=== PATIENT | female | born 1970 | race Caucasian/White ===

== ENCOUNTER 2021-09-13 09:40 | Emergency (ER) | payer MEDICAID ==
[~2021-09-13] VITALS: Ht 180.3 cm; Wt 94.5 kg
[2021-09-13 09:52] VITALS: BP 147/87
[2021-09-13] MEDS ORDERED: HYDR-3972 PO (10:05)
== END 2021-09-13 11:37 | disposition home or self-care (01) ==
LOC: ER 09:41
DX: M25.512 Pain in left shoulder (principal); Z88.0 Allergy status to penicillin; Z88.8 Allergy status to other drugs, medicaments and biological substances; Z91.030 Bee allergy status; Z79.899 Other long term (current) drug therapy
CPT/HCPCS: 73030; 99283

== ENCOUNTER 2024-02-02 08:35 | Emergency (ER) | payer MEDICAID ==
[~2024-02-02] VITALS: Ht 180.3 cm; Wt 74.3 kg
[2024-02-02 08:36] VITALS: BP 140/90; PULSE 75; TEMP 98.8; O2SAT 100
[2024-02-02] MEDS: HYDROcodone/acetaminophen 5mg/325mg tablet PO ONE (09:24)
[2024-02-02 09:31] VITALS: RESP 18
[2024-02-02] MEDS ORDERED: CLIN300C63 PO (09:31)
[2024-02-02] MEDS: ketorolac tromethamine 15mg/ml inj. IM ONE (09:31)
[2024-02-02] MEDS ORDERED: HYDR-3965 PO (09:31)
== END 2024-02-02 09:47 | disposition home or self-care (01) ==
LOC: ER 08:35
DX: K04.7 Periapical abscess without sinus (principal); Z88.0 Allergy status to penicillin; Z91.041 Radiographic dye allergy status
CPT/HCPCS: 96372; 99283; J1885

== ENCOUNTER 2024-09-10 19:42 | Inpatient (IN) | payer MEDICAID ==
[~2024-09-10] VITALS: Ht 180.3 cm; Wt 77.3 kg
[2024-09-10] MEDS: tamsulosin 0.4mg capsule PO STA (21:57)
[2024-09-10] MEDS: meperidine/PF 50mg/ml syringe IV ONE (21:57)
[2024-09-10] MEDS: ketorolac trometh 15mg/ml vial 15 MG/ML ML IV ONE (21:58)
[2024-09-10] MEDS: normal saline 1000ML IV soln IVB ONE (22:00)
[2024-09-10 22:11] LABS: BILIRUBIN,URINE NEGATIVE (Neg); CLARITY,URINE CLEAR (Clear); COLOR,URINE YELLOW (Yellow); GLUCOSE, URINE NEGATIVE (Neg); KETONES,URINE NEGATIVE (Neg); LEUKOCYTE ESTERASE ,URINE NEGATIVE (Neg); NITRITES, URINE NEGATIVE (Neg); OCCULT BLOOD,URINE NEGATIVE (Neg); PROTEIN,URINE NEGATIVE (Neg); UROBILINOGEN,URINE 0.2 E.U/dL (0.2-1.0)
[2024-09-10 22:15] LABS: UA COLLECTION TYPE CLN CATCH MIDSTREAM
[2024-09-10 22:35] LABS: BASOPHILS % (AUTO) 0.6 % (0-1); EOSINOPHILS # (AUTO) 0.1 X10'3 (0-0.9); EOSINOPHILS % (AUTO) 2.7 % (0-6); HEMOGLOBIN 13.1 g/dl (12.0-16.0); LYMPHOCYTES # (AUTO) 1.7 X10'3 (1.1-4.8); LYMPHOCYTES % (AUTO) 39.5 % (21-51); MEAN CORPUSCULAR HEMOGLOBIN 37.3 PG (27.0-31.0); MEAN CORPUSCULAR HGB CONC 34.5 g/dL (33.0-36.5); MEAN CORPUSCULAR VOLUME 108.3 FL (78-98); MEAN PLATELET VOLUME 7.2 FL (7.4-10.4); MONOCYTES # (AUTO) 0.4 X10'3 (0-0.9); MONOCYTES % (AUTO) 10.3 % (2-12); NEUTROPHILS % (AUTO) 46.9 % (42-75); PLATELET COUNT 150 X10'3 (140-440); RED BLOOD COUNT 3.51 X10'6 (4.20-5.60); WHITE BLOOD COUNT 4.3 X10'3 (4.5-11.0)
[2024-09-10 22:48] LABS: ALANINE AMINOTRANSFERASE 75 U/L (12-78); ALBUMIN 3.4 G/DL (3.4-5.0); ALBUMIN/GLOBULIN RATIO 0.9 (1.1-1.5); ALKALINE PHOSPHATASE 113 IU/L (46-116); ANION GAP 10 (8-16); ASPARTATE AMINO TRANSFERASE 111 U/L (10-37); BILIRUBIN,TOTAL 0.9 MG/DL (0.1-1.0); BLOOD UREA NITROGEN 4 MG/DL (7-18); BUN/CREATININE RATIO 6.3 (10.0-20.0); CALCIUM 8.4 MG/DL (8.5-10.1); CHLORIDE 106 MMOL/L (99-107); CREATININE 0.63 MG/DL (0.40-0.90); GLUCOSE 90 MG/DL (70-104); LIPASE 47 U/L (16-77); MAGNESIUM 1.9 MG/DL (1.5-2.4); SODIUM 141 MMOL/L (135-145); TOTAL CARBON DIOXIDE 25.4 MMOL/L (24-32); TOTAL PROTEIN 7.3 G/DL (6.4-8.2); eCRCL 115 ML/MIN; eGFR > 90 ML/MIN
[2024-09-10 22:53] LABS: BILIRUBIN,DIRECT 0.2 MG/DL (0-0.3); POTASSIUM 3.1 MMOL/L (3.5-5.1)
[2024-09-11] MEDS ORDERED: potassium Cl 20 mEq SR tablet PO PRN ×2 (00:15)
[2024-09-11] MEDS ORDERED: magnesium sulf-water 4G/100mL 100 ML IV PRN (00:15)
[2024-09-11] MEDS ORDERED: magnesium Cl slow-release 64mg tablet PO PRN (00:15)
[2024-09-11] MEDS: ringers solution, lacted 1,000 ML IV SCH (00:15)
[2024-09-11] MEDS ORDERED: magnesium sulf-water 2g/50mL 50 ML IV PRN (00:15)
[2024-09-11] MEDS ORDERED: metoclopramide 5 mg/ml inj IV PRN (00:15)
[2024-09-11] MEDS ORDERED: acetaminophen 325mg tablet PO PRN (00:15)
[2024-09-11] MEDS: LORazepam 2 mg/ml vial IV ONE (01:15)
[2024-09-11] MEDS: LidoCAINE 2% Topical Jelly 11mL syringe (UROJET) TOP STA (02:14)
[2024-09-11] MEDS: heparin, porcine 5000 units/ml vial SQ SCH (07:30)
[2024-09-11] MEDS: morphine 2 MG/ML inj. syringe IV PRN (07:39)
[2024-09-11] MEDS: K and/or MAG REPLACEMENT MC SCH (08:00)
[2024-09-11] MEDS: potassium Cl 40MEQ/1/2NS 520ml 520 ML IV PRN (10:33)
[2024-09-11] MEDS: HYDROmorphone inj. 0.5 MG/0.5 ML DISP.SYRIN IV PRN (13:33)
[2024-09-11] MEDS ORDERED: ESTR1TAB28 PO (14:54)
[2024-09-11] MEDS ORDERED: LOSA50TA64 PO (14:54)
[2024-09-11] MEDS ORDERED: BUPR-561 PO (14:54)
[2024-09-11] MEDS ORDERED: ROSU10TA72 PO (14:54)
[2024-09-11] MEDS ORDERED: BUSP10TA3 PO (14:54)
[2024-09-11] MEDS ORDERED: PARO20TA6 PO (14:54)
[2024-09-11] MEDS ORDERED: FAMO20TA8 PO (14:54)
[2024-09-11] MEDS ORDERED: NIFE-33 PO (14:54)
[2024-09-11] MEDS ORDERED: UNABLE TO OBTAIN (15:34)
[2024-09-11] MEDS: busPIRone 5mg tablet PO SCH (20:21)
[2024-09-11] MEDS: famotidine 20mg tablet PO SCH (20:21)
[2024-09-11] MEDS: atorvastatin 20mg tablet PO SCH (20:21)
[2024-09-11] MEDS: diatr meglu/diatrizoate 30ml oral sol.-(3 dose) bottle PO SCH (20:54)
[2024-09-11] MEDS: HYDROmorphone 1 mg/ml syringe IV PRN (22:06)
[2024-09-11] MEDS: ondansetron/PF 4mg/2ml inj IV PRN (22:09)
[2024-09-12 03:24] LABS: HEMOGLOBIN 11.6 g/dl (12.0-16.0); MONOCYTES # (AUTO) 0.3 X10'3 (0-0.9); NEUTROPHILS # (AUTO) 2.4 X10'3 (1.8-7.7)
[2024-09-12 03:27] LABS: BASOPHILS % (AUTO) 0.3 % (0-1); EOSINOPHILS # (AUTO) 0.1 X10'3 (0-0.9); EOSINOPHILS % (AUTO) 3.1 % (0-6); HEMATOCRIT 34.7 % (35.0-45.0); LYMPHOCYTES % (AUTO) 26.3 % (21-51); MEAN CORPUSCULAR HEMOGLOBIN 35.3 PG (27.0-31.0); MEAN CORPUSCULAR HGB CONC 33.4 g/dL (33.0-36.5); MEAN CORPUSCULAR VOLUME 105.6 FL (78-98); MONOCYTES % (AUTO) 8.4 % (2-12); NEUTROPHILS % (AUTO) 61.9 % (42-75); PLATELET COUNT 105 X10'3 (140-440); RED BLOOD COUNT 3.28 X10'6 (4.20-5.60); RED CELL DISTRIBUTION WIDTH 14.5 % (11.5-14.5)
[2024-09-12 03:49] LABS: ALANINE AMINOTRANSFERASE 57 U/L (12-78); ALBUMIN 2.7 G/DL (3.4-5.0); ALBUMIN/GLOBULIN RATIO 0.9 (1.1-1.5); ALKALINE PHOSPHATASE 106 IU/L (46-116); ANION GAP 6 (8-16); ASPARTATE AMINO TRANSFERASE 88 U/L (10-37); BILIRUBIN,TOTAL 3.2 MG/DL (0.1-1.0); BLOOD UREA NITROGEN 7 MG/DL (7-18); BUN/CREATININE RATIO 11.7 (10.0-20.0); CALCIUM 8.5 MG/DL (8.5-10.1); CHLORIDE 107 MMOL/L (99-107); GLUCOSE 89 MG/DL (70-104); POTASSIUM 3.9 MMOL/L (3.5-5.1); SODIUM 139 MMOL/L (135-145); TOTAL CARBON DIOXIDE 25.6 MMOL/L (24-32); TOTAL PROTEIN 5.6 G/DL (6.4-8.2); eCRCL 121 ML/MIN; eGFR > 90 ML/MIN
[2024-09-12 04:01] LABS: ANISOCYTOSIS 1+; PLATELET ESTIMATE DECREASED
[2024-09-12 04:40] LABS: TOTAL CELLS COUNTED 100
[2024-09-12 08:00] VITALS: BP 139/68; PULSE 81; RESP 18; TEMP 98.6; O2SAT 98
[2024-09-12] MEDS: PARoxetine 20mg tablet PO SCH (08:00)
[2024-09-12] MEDS: NIFEdipine XL 30mg tablet PO SCH (08:38)
[2024-09-12] MEDS: losartan 50mg tablet PO SCH (08:38)
[2024-09-12] MEDS: BUPROPION HCL 150MG XL 24 HR 150 MG TAB PO SCH (08:38)
[2024-09-12] MEDS: methylPREDNISolone sod succ/PF 40mg inj. IV SCH (11:38)
[2024-09-12] MEDS: famotidine 20mg tablet PO ONE (11:38)
[2024-09-12 15:00] VITALS: BP 120/64; PULSE 77; RESP 18; TEMP 98.1; O2SAT 96
[2024-09-12] MEDS: diphenhydrAMINE 25 MG/10 ML UD oral solution PO PRN (16:24)
[2024-09-12 18:00] VITALS: BP 112/55; PULSE 91; RESP 15; TEMP 98.8; O2SAT 99
[2024-09-12 20:00] VITALS: RESP 15; O2SAT 99
[2024-09-12] MEDS: diatr meglu/diatrizoate 30ml oral sol.-(3 dose) bottle PO SCH (21:00)
[2024-09-12 22:00] VITALS: BP 87/52; PULSE 91; RESP 15; TEMP 98.2; O2SAT 99
[2024-09-13 06:00] VITALS: BP 96/57; PULSE 79; RESP 16; TEMP 97.6; O2SAT 96
[2024-09-13 06:11] LABS: ALANINE AMINOTRANSFERASE 49 U/L (12-78); ALBUMIN 2.5 G/DL (3.4-5.0); ALBUMIN/GLOBULIN RATIO 0.8 (1.1-1.5); ALKALINE PHOSPHATASE 98 IU/L (46-116); ANION GAP 7 (8-16); ASPARTATE AMINO TRANSFERASE 61 U/L (10-37); BILIRUBIN,TOTAL 1.8 MG/DL (0.1-1.0); BLOOD UREA NITROGEN 12 MG/DL (7-18); BUN/CREATININE RATIO 17.6 (10.0-20.0); CALCIUM 8.2 MG/DL (8.5-10.1); CHLORIDE 103 MMOL/L (99-107); CREATININE 0.68 MG/DL (0.40-0.90); GLUCOSE 166 MG/DL (70-104); POTASSIUM 4.1 MMOL/L (3.5-5.1); SODIUM 134 MMOL/L (135-145); TOTAL CARBON DIOXIDE 24.3 MMOL/L (24-32); TOTAL PROTEIN 5.6 G/DL (6.4-8.2); eCRCL 107 ML/MIN; eGFR > 90 ML/MIN
[2024-09-13 06:47] LABS: BASOPHILS % (AUTO) 0.1 % (0-1); EOSINOPHILS % (AUTO) 0 % (0-6); LYMPHOCYTES # (AUTO) 0.3 X10'3 (1.1-4.8); LYMPHOCYTES % (AUTO) 12.7 % (21-51); MEAN PLATELET VOLUME 7.1 FL (7.4-10.4); MONOCYTES # (AUTO) 0.1 X10'3 (0-0.9); MONOCYTES % (AUTO) 4.2 % (2-12); NEUTROPHILS # (AUTO) 2.2 X10'3 (1.8-7.7); PLATELET COUNT 92 X10'3 (140-440); WHITE BLOOD COUNT 2.7 X10'3 (4.5-11.0)
[2024-09-13 09:20] LABS: HEMATOCRIT 31.7 % (35.0-45.0); HEMOGLOBIN 10.8 g/dl (12.0-16.0); MEAN CORPUSCULAR HEMOGLOBIN 36.4 PG (27.0-31.0); MEAN CORPUSCULAR HGB CONC 34.1 g/dL (33.0-36.5); MEAN CORPUSCULAR VOLUME 106.7 FL (78-98); RED BLOOD COUNT 2.97 X10'6 (4.20-5.60); RED CELL DISTRIBUTION WIDTH 13.9 % (11.5-14.5)
[2024-09-13 09:46] LABS: PLATELET ESTIMATE DECREASED; ROULEAUX 1+; TOTAL CELLS COUNTED 100
[2024-09-13 09:47] LABS: SMUDGE CELLS FEW
[2024-09-13] MEDS: mag hydrox/Alum hydrox/simeth 30ml oral suspension PO PRN (16:45)
[2024-09-13 18:00] VITALS: BP 104/63; PULSE 74; RESP 14; TEMP 98.7; O2SAT 98
[2024-09-13 19:40] VITALS: RESP 14; O2SAT 98
[2024-09-13 20:00] VITALS: RESP 14; O2SAT 98
[2024-09-13] MEDS: HYDROcodone/acetaminophen 5mg/325mg tablet PO PRN (20:27)
[2024-09-13 22:00] VITALS: BP 104/60; PULSE 75; RESP 16; TEMP 98; O2SAT 98
[2024-09-13 23:47] VITALS: BP 104/63; PULSE 74; RESP 14; TEMP 98.7; O2SAT 98
[2024-09-14 06:00] VITALS: BP 97/59; PULSE 55; RESP 16; TEMP 97.9; O2SAT 95
[2024-09-14 06:22] LABS: ALANINE AMINOTRANSFERASE 58 U/L (12-78); ALBUMIN 2.9 G/DL (3.4-5.0); ALBUMIN/GLOBULIN RATIO 0.9 (1.1-1.5); ALKALINE PHOSPHATASE 96 IU/L (46-116); ANION GAP 1 (8-16); ASPARTATE AMINO TRANSFERASE 64 U/L (10-37); BLOOD UREA NITROGEN 9 MG/DL (7-18); BUN/CREATININE RATIO 13.8 (10.0-20.0); CALCIUM 8.3 MG/DL (8.5-10.1); CHLORIDE 105 MMOL/L (99-107); CREATININE 0.65 MG/DL (0.40-0.90); GLUCOSE 158 MG/DL (70-104); POTASSIUM 4.6 MMOL/L (3.5-5.1); SODIUM 136 MMOL/L (135-145); TOTAL CARBON DIOXIDE 29.7 MMOL/L (24-32); TOTAL PROTEIN 6.1 G/DL (6.4-8.2); eCRCL 112 ML/MIN; eGFR > 90 ML/MIN
[2024-09-14 07:20] LABS: BASOPHILS % (AUTO) 0.1 % (0-1); EOSINOPHILS % (AUTO) 0 % (0-6); HEMATOCRIT 34.8 % (35.0-45.0); HEMOGLOBIN 11.5 g/dl (12.0-16.0); LYMPHOCYTES # (AUTO) 0.4 X10'3 (1.1-4.8); LYMPHOCYTES % (AUTO) 7.5 % (21-51); MEAN CORPUSCULAR HGB CONC 33.2 g/dL (33.0-36.5); MEAN CORPUSCULAR VOLUME 105.3 FL (78-98); MEAN PLATELET VOLUME 7.4 FL (7.4-10.4); MONOCYTES # (AUTO) 0.3 X10'3 (0-0.9); MONOCYTES % (AUTO) 5.4 % (2-12); NEUTROPHILS # (AUTO) 4.6 X10'3 (1.8-7.7); PLATELET COUNT 114 X10'3 (140-440); RED CELL DISTRIBUTION WIDTH 14.3 % (11.5-14.5); WHITE BLOOD COUNT 5.3 X10'3 (4.5-11.0)
[2024-09-14 08:00] VITALS: RESP 16; O2SAT 95
[2024-09-14 10:00] VITALS: BP 121/81; PULSE 66; RESP 14; TEMP 97.4; O2SAT 98
[2024-09-14] MEDS ORDERED: oxyCODONE/APAP 5-325mg tablet PO PRN (11:35)
[2024-09-14] MEDS: oxyCODONE/APAP 10/325mg tablet ONE (11:50)
[2024-09-14] MEDS: oxyCODONE/APAP 10/325mg tablet PO PRN (15:45)
[2024-09-14 18:00] VITALS: BP 124/73; PULSE 63; RESP 16; TEMP 97.4; O2SAT 96
[2024-09-14] MEDS: barium sulfate 450ml oral suspension PO ONE (20:58)
[2024-09-14 22:00] VITALS: BP 128/74; PULSE 57; RESP 16; TEMP 97.9; O2SAT 95
[2024-09-15 06:23] LABS: ALANINE AMINOTRANSFERASE 68 U/L (12-78); ALBUMIN 3.2 G/DL (3.4-5.0); ALBUMIN/GLOBULIN RATIO 0.9 (1.1-1.5); ALKALINE PHOSPHATASE 101 IU/L (46-116); ANION GAP 5 (8-16); ASPARTATE AMINO TRANSFERASE 60 U/L (10-37); BILIRUBIN,TOTAL 0.8 MG/DL (0.1-1.0); BLOOD UREA NITROGEN 7 MG/DL (7-18); BUN/CREATININE RATIO 9.9 (10.0-20.0); CALCIUM 8.7 MG/DL (8.5-10.1); CHLORIDE 104 MMOL/L (99-107); CREATININE 0.71 MG/DL (0.40-0.90); GLUCOSE 135 MG/DL (70-104); POTASSIUM 4.3 MMOL/L (3.5-5.1); SODIUM 138 MMOL/L (135-145); TOTAL CARBON DIOXIDE 29.3 MMOL/L (24-32); TOTAL PROTEIN 6.7 G/DL (6.4-8.2); eCRCL 102 ML/MIN; eGFR 86 ML/MIN
[2024-09-15 06:40] LABS: BASOPHILS % (AUTO) 0.2 % (0-1); EOSINOPHILS % (AUTO) 0 % (0-6); LYMPHOCYTES # (AUTO) 0.5 X10'3 (1.1-4.8); LYMPHOCYTES % (AUTO) 12.2 % (21-51); MEAN CORPUSCULAR HEMOGLOBIN 35.1 PG (27.0-31.0); MEAN CORPUSCULAR HGB CONC 33.3 g/dL (33.0-36.5); MEAN CORPUSCULAR VOLUME 105.6 FL (78-98); MEAN PLATELET VOLUME 7.3 FL (7.4-10.4); MONOCYTES # (AUTO) 0.2 X10'3 (0-0.9); MONOCYTES % (AUTO) 5.7 % (2-12); NEUTROPHILS # (AUTO) 3.1 X10'3 (1.8-7.7); NEUTROPHILS % (AUTO) 81.9 % (42-75); PLATELET COUNT 114 X10'3 (140-440); RED BLOOD COUNT 3.41 X10'6 (4.20-5.60); RED CELL DISTRIBUTION WIDTH 14.3 % (11.5-14.5); WHITE BLOOD COUNT 3.8 X10'3 (4.5-11.0)
[2024-09-15 07:00] VITALS: BP 132/67; PULSE 68; RESP 16; TEMP 98; O2SAT 97
[2024-09-15] MEDS: barium sulfate 450ml oral suspension PO ONE ×2 (07:24→10:33)
[2024-09-15 08:00] VITALS: RESP 18; O2SAT 96
[2024-09-15 10:00] VITALS: BP 152/78; PULSE 60; RESP 16; TEMP 98; O2SAT 98
[2024-09-15 18:00] VITALS: BP 136/76; PULSE 70; RESP 18; TEMP 97.9; O2SAT 99
[2024-09-15 20:00] VITALS: RESP 18; O2SAT 96
[2024-09-15] MEDS: docusate sod 100mg capsule PO SCH (20:08)
[2024-09-15 22:00] VITALS: BP 102/62; PULSE 63; RESP 13; TEMP 98; O2SAT 98
[2024-09-16 06:00] VITALS: BP 108/61; PULSE 64; RESP 13; TEMP 98.5; O2SAT 99
[2024-09-16 08:00] VITALS: RESP 13; O2SAT 99
[2024-09-16 08:36] LABS: ALANINE AMINOTRANSFERASE 68 U/L (12-78); ALBUMIN 3.3 G/DL (3.4-5.0); ALKALINE PHOSPHATASE 92 IU/L (46-116); ANION GAP 5 (8-16); ASPARTATE AMINO TRANSFERASE 57 U/L (10-37); BILIRUBIN,TOTAL 0.9 MG/DL (0.1-1.0); BLOOD UREA NITROGEN 11 MG/DL (7-18); BUN/CREATININE RATIO 16.4 (10.0-20.0); CALCIUM 8.4 MG/DL (8.5-10.1); CHLORIDE 100 MMOL/L (99-107); CREATININE 0.67 MG/DL (0.40-0.90); GLUCOSE 93 MG/DL (70-104); POTASSIUM 3.5 MMOL/L (3.5-5.1); SODIUM 137 MMOL/L (135-145); TOTAL CARBON DIOXIDE 32.4 MMOL/L (24-32); TOTAL PROTEIN 6.6 G/DL (6.4-8.2); eCRCL 109 ML/MIN; eGFR > 90 ML/MIN
[2024-09-16 08:51] LABS: BASOPHILS % (AUTO) 0.3 % (0-1); EOSINOPHILS % (AUTO) 0 % (0-6); HEMATOCRIT 35.5 % (35.0-45.0); HEMOGLOBIN 11.9 g/dl (12.0-16.0); LYMPHOCYTES % (AUTO) 22.3 % (21-51); MEAN CORPUSCULAR HEMOGLOBIN 35.1 PG (27.0-31.0); MEAN CORPUSCULAR HGB CONC 33.4 g/dL (33.0-36.5); MEAN CORPUSCULAR VOLUME 104.9 FL (78-98); MEAN PLATELET VOLUME 7.1 FL (7.4-10.4); MONOCYTES # (AUTO) 0.5 X10'3 (0-0.9); MONOCYTES % (AUTO) 10.2 % (2-12); NEUTROPHILS # (AUTO) 3.1 X10'3 (1.8-7.7); NEUTROPHILS % (AUTO) 67.2 % (42-75); PLATELET COUNT 116 X10'3 (140-440); RED BLOOD COUNT 3.38 X10'6 (4.20-5.60); RED CELL DISTRIBUTION WIDTH 13.9 % (11.5-14.5); WHITE BLOOD COUNT 4.6 X10'3 (4.5-11.0)
[2024-09-16 10:00] VITALS: BP 121/67; PULSE 62; RESP 16; TEMP 98.4; O2SAT 99
[2024-09-16] MEDS: polyethylene glycol 3350 17gm powd pack PO ONE (13:34)
[2024-09-16 18:00] VITALS: BP 108/57; PULSE 64; RESP 18; TEMP 98.6; O2SAT 96
[2024-09-16] MEDS: polyethylene glycol 3350 17gm powd pack PO SCH (20:04)
[2024-09-16 22:00] VITALS: BP 117/64; PULSE 66; RESP 18; TEMP 98.1; O2SAT 98
[2024-09-17 06:00] VITALS: BP 104/62; PULSE 57; RESP 18; TEMP 98.4; O2SAT 94
[2024-09-17] MEDS: famotidine 20mg tablet PO SCH (08:58)
[2024-09-17 10:00] VITALS: BP 91/55; PULSE 63; RESP 20; TEMP 99.2; O2SAT 98
[2024-09-17] MEDS: HYDROmorphone 2mg tablet PO PRN (10:04)
[2024-09-17 18:00] VITALS: BP 106/60; PULSE 69; RESP 18; TEMP 100.2; O2SAT 98
[2024-09-17] MEDS: bisacodyl 10mg suppository rectal RC STA (20:27)
[2024-09-17] MEDS: methylnaltrexone br 12mg/0.6ml inj***SubQ only SQ ONE (20:27)
[2024-09-17 22:00] VITALS: BP 90/49; PULSE 64; RESP 18; TEMP 98.1; O2SAT 95
[2024-09-18 06:00] VITALS: BP 105/60; PULSE 61; RESP 17; TEMP 98.3; O2SAT 97
[2024-09-18 08:00] VITALS: RESP 16; O2SAT 97
[2024-09-18] MEDS ORDERED: OXYC1TAB17 PO (09:58)
[2024-09-18 10:00] VITALS: BP 117/68; PULSE 64; RESP 16; TEMP 98; O2SAT 99
== END 2024-09-18 11:45 | disposition home or self-care (01) | DRG 254 ==
LOC: ER 19:42 → ED HOLD 09-11 00:15 → EDBEDREQ 09-12 05:41 → ORTHO 4S 09-12 07:44
PROVIDERS: ADMIT Internal Medicine Critical Care Medicine; ATTEND Internal Medicine
DX: K46.0 Unspecified abdominal hernia with obstruction, without gangrene (principal); M34.9 Systemic sclerosis, unspecified; M06.9 Rheumatoid arthritis, unspecified; G89.29 Other chronic pain; F41.9 Anxiety disorder, unspecified; F32.A Depression, unspecified; I73.00 Raynaud's syndrome without gangrene; M54.9 Dorsalgia, unspecified; Z90.49 Acquired absence of other specified parts of digestive tract; Z90.710 Acquired absence of both cervix and uterus; Z88.0 Allergy status to penicillin; Z88.8 Allergy status to other drugs, medicaments and biological substances; Z91.030 Bee allergy status; Z91.041 Radiographic dye allergy status
CPT/HCPCS: 36415; 70200; 73700; 74176; 74181; 80048; 80053; 80076; 81003; 82948; 83690; 83735; 84145; 85007; 85008; 85025; 85651; 96374; 96375; 99285; A6258; G0378; J1171; J1644; J1885; J2060; J2175; J2212; J2270; J2405; J2919; J3480; J7030; J7120; Q0163; Q9963

== ENCOUNTER 2024-09-30 12:03 | Emergency (ER) | payer MEDICAID ==
[~2024-09-30] VITALS: Ht 180.3 cm; Wt 74.5 kg
[~2024-09-30 12:03] MED LIST: BUPR-561 PO; BUSP10TA3 PO; ESTR1TAB28 PO; FAMO20TA8 PO; LOSA50TA64 PO; NIFE-33 PO; OXYC1TAB17 PO; PARO20TA6 PO; ROSU10TA72 PO; UNABLE TO OBTAIN
[2024-09-30 12:47] VITALS: TEMP 98.5
[2024-09-30] MEDS: HYDROmorphone 1 mg/ml syringe IV ONE (16:14)
[2024-09-30] MEDS: ondansetron/PF 4mg/2ml inj IV ONE (16:14)
[2024-09-30 16:16] LABS: BASOPHILS % (AUTO) 0.3 % (0-1); EOSINOPHILS # (AUTO) 0.1 X10'3 (0-0.9); EOSINOPHILS % (AUTO) 3.7 % (0-6); HEMATOCRIT 36.9 % (35.0-45.0); HEMOGLOBIN 12.4 g/dl (12.0-16.0); MEAN CORPUSCULAR HEMOGLOBIN 35.2 PG (27.0-31.0); MEAN CORPUSCULAR HGB CONC 33.6 g/dL (33.0-36.5); MEAN CORPUSCULAR VOLUME 104.7 FL (78-98); MEAN PLATELET VOLUME 6.9 FL (7.4-10.4); MONOCYTES # (AUTO) 0.3 X10'3 (0-0.9); MONOCYTES % (AUTO) 8.2 % (2-12); NEUTROPHILS % (AUTO) 58.8 % (42-75); PLATELET COUNT 138 X10'3 (140-440); RED BLOOD COUNT 3.52 X10'6 (4.20-5.60); RED CELL DISTRIBUTION WIDTH 13.4 % (11.5-14.5); WHITE BLOOD COUNT 3.4 X10'3 (4.5-11.0)
[2024-09-30] MEDS ORDERED: OXYC-145 PO ×2 (16:23→18:49)
[2024-09-30] MEDS ORDERED: LACT10SO3 PO (16:23)
[2024-09-30 16:24] LABS: ALANINE AMINOTRANSFERASE 37 U/L (12-78); ALBUMIN 3.3 G/DL (3.4-5.0); ALBUMIN/GLOBULIN RATIO 0.9 (1.1-1.5); ALKALINE PHOSPHATASE 119 IU/L (46-116); ANION GAP 9 (8-16); ASPARTATE AMINO TRANSFERASE 45 U/L (10-37); BILIRUBIN,TOTAL 0.5 MG/DL (0.1-1.0); BLOOD UREA NITROGEN 6 MG/DL (7-18); BUN/CREATININE RATIO 9.7 (10.0-20.0); CALCIUM 8.6 MG/DL (8.5-10.1); CHLORIDE 106 MMOL/L (99-107); CREATININE 0.62 MG/DL (0.40-0.90); GLUCOSE 90 MG/DL (70-104); POTASSIUM 3.9 MMOL/L (3.5-5.1); SODIUM 142 MMOL/L (135-145); TOTAL CARBON DIOXIDE 26.7 MMOL/L (24-32); TOTAL PROTEIN 6.9 G/DL (6.4-8.2); eCRCL 117 ML/MIN; eGFR > 90 ML/MIN
[2024-09-30 16:59] VITALS: BP 141/72; PULSE 72; RESP 12; O2SAT 96
== END 2024-09-30 17:02 | disposition home or self-care (01) ==
LOC: ER 12:04
DX: R10.12 Left upper quadrant pain (principal); M34.9 Systemic sclerosis, unspecified; K21.9 Gastro-esophageal reflux disease without esophagitis; M19.90 Unspecified osteoarthritis, unspecified site; G89.29 Other chronic pain; Z88.0 Allergy status to penicillin; Z88.5 Allergy status to narcotic agent; Z88.8 Allergy status to other drugs, medicaments and biological substances; Z91.030 Bee allergy status; Z79.899 Other long term (current) drug therapy; Z90.710 Acquired absence of both cervix and uterus; Z90.49 Acquired absence of other specified parts of digestive tract
CPT/HCPCS: 36415; 74176; 80053; 85025; 96374; 96375; 99285; J1171; J2405

== ENCOUNTER 2025-04-26 13:58 | Outpatient (CLI) | payer MEDICAID ==
[~2025-04-26 13:58] MED LIST changes: -BUPR-561 PO; +BUPR-726 PO; +LACT-373 PO; +OXYC-145 PO
--- NOTE | 2025-04-26 15:49 | RADIOLOGY REPORT ---
INDICATION: GASTROPARESIS TECHNIQUE: Multiple real-time sonographic images of the abdomen were obtained. COMPARISON: None FINDINGS: The liver is heterogeneous in echogenicity. The liver measures 16cm. No intrahepatic bilia ry ductal dilatation is noted. Gallbladder surgically removed. Common bile duct measures 5 mm. The right kidney measures 11cm. No hydronephrosis. The pancreas is not well visualized due to obscuration from bowel gas. The visualized portions of the IVC and aorta are grossly unremarkable. IMPRESSION: Hepatic steatosis. Moderate ascites. Hepatic cirrhosis.
== END 2025-04-26 23:59 | disposition home or self-care (01) ==
LOC: US 13:58
PROVIDERS: ATTEND Family Medicine
DX: K76.0 Fatty (change of) liver, not elsewhere classified (principal); K31.84 Gastroparesis; R18.8 Other ascites; K74.60 Unspecified cirrhosis of liver
CPT/HCPCS: 76700

== ENCOUNTER 2025-05-11 03:06 | Inpatient (IN) | payer MEDICAID ==
[2025-05-11] VITALS (8 sets, daily range): BP systolic 86–123; BP diastolic 50–64; PULSE 53–69; RESP 16–18; TEMP 97.6–98; O2SAT 96–99
[~2025-05-11] VITALS: Ht 180.3 cm; Wt 65.0 kg
--- NOTE | 2025-05-11 03:39 | Physician Documentation ---
History of Present Illness ~ General Chief Complaint: Multiple Medical Complaints Stated Complaint: CONSTIPATION,URINARY RETENTION Time Seen by MD: 03:37 Primary Medical Doctor: DR NEAL Mode of Arrival: POV History of Present Illness Initial Comments Patient presents to the emergency room for evaluation of abdominal pain and nausea. Patient has a complicated medical history including scleroderma and rheumatoid arthritis. She was seen here in August for abdominal pain and admitted for a proximally a week for partial small-bowel obstruction seen by Dr. Gurrola. She states since then she has had a colonoscopy and an endoscopy with no significant findings. She has been told to take Protonix and Colace. She reports compliance with these. Last bowel movement a proximally two days ago and described as very small and hard. Started having vomiting yesterday. She is on unable to take any ibuprofen or Tylenol as she states her straightedge man told her she could not. She continues to pass flatus but notes that she has significant abdominal distention Medication Reconciliation Allergies: Coded Allergies: Penicillins (Verified Allergy, Severe, THROAT SWELLS, BREATHING TROUBLE, 09/10/24) diatrizoate meglumine (Verified Allergy, Severe, SWELLING/HIVES, 09/12/24) diatrizoate sodium (Verified Allergy, Severe, SWELLING/HIVES, 09/12/24) iodine (Verified Allergy, Severe, RASH/SWELLING, 09/10/24) Bee Pollen (Verified Allergy, Unknown, 09/10/24) Uncoded Allergies: IV CONTRAST (Allergy, Severe, SWELLING, HIVES, 09/12/24) Scheduled Bupropion HCl (Bupropion Xl), 1 TAB PO DAILY, (Reported) Buspirone HCl (Buspirone HCl), 1 TAB PO TID, (Reported) Famotidine (Famotidine), 1 TAB PO BID, (Reported) Hydroxychloroquine Sulfate* (Plaquenil*), 1 TAB PO BID, (Reported) Losartan Potassium (Losartan Potassium), 1 TAB PO DAILY, (Reported) Nifedipine ER* (Nifedipine Er*), 1 TAB PO DAILY, (Reported) Paroxetine HCl (Paroxetine HCl), 1 TAB PO DAILY, (Reported) Rosuvastatin Calcium (Rosuvastatin Calcium), 1 TAB PO HS, (Reported) Sildenafil Citrate (Sildenafil), 1 TAB PO TID, (Reported) Miscellaneous Medications Estradiol (Estradiol), PO, (Reported) Prucalopride Succinate (Prucalopride), (Reported) Discontinued Medications Lactulose (Lactulose), 30 ML PO QAM Discontinued Reason: patient no longer taking Oxycodone HCl/Acetaminophen (Percocet 5-325 mg Tablet), 1-2 TAB PO Q4HPRN PRN for moderate or severe pain 4-10 Discontinued Reason: patient no longer taking Oxycodone HCl/Acetaminophen (Percocet 5-325 mg Tablet), 1 TAB PO QID PRN PRN for moderate or severe pain 4-10 Discontinued Reason: patient no longer taking Oxycodone Hcl/Acetaminophen (Oxycodone-Acetaminophen 10-325), 1 TAB PO Q8H PRN for severe pain (7-10) Discontinued Reason: patient no longer taking Unable to Obtain Medications (Unable to Obtain Medications), (Reported) Discontinued Reason: patient no longer taking Past Medical History Past Medical History: GERD, Hernia, *MUSCULOSKELETAL*, Arthritis, Chronic Pain, Rheumatoid Arthritis Past Surgical History: no surgical history Drug Use: none Lives In: Home Review of Systems ROS All review of systems negative except as per HPI Physical Exam Physical Exam Vital Signs: Temperature: 97.8, Heart Rate: 86, Respiratory Rate: 18, BP: 129/72, Pulse Oximetry: 97, Weight: 65.000 Oxygen Flow Rate: 0 Physical Exam General: Patient is awake, alert, oriented x4 in mild distress. Tearful Head: Normocephalic and atraumatic. Eyes: Conjunctival normal. EOMI. PERRL. ENT: Mucous membranes moist. Neck: Supple, trachea is midline. Chest: Clear to auscultation bilaterally without rales, rhonchi, or wheezes. There is no accessory muscle use or retractions. Cardiac: RRR without murmurs, gallops, or rubs. Abd: Soft, positive distention with mild diffuse abdominal tenderness to palpation and no peritonitis Progress Results/Orders Results/Orders Orders - GUS GATES MD Ct Abdomen Pelvis (05/11/25 06:50) Page Hospitalist (05/11/25 05:26) Fill Out Med Reconciliation (05/11/25 05:26) Completed Orders - GUS GATES MD Hcg, Ur Ql (05/11/25 03:16) Cbc/Diff (05/11/25 03:16) Lipase (05/11/25 03:16) CMP (05/11/25 03:16) Morphine 4mg/Ml Inj. (Morphine Inj.) (05/11/25 03:40) Ondansetron Inj. (Zofran 4mg/2ml Vial) (05/11/25 03:40) Normal Saline 1000ml (Sodium Chloride 10 (05/11/25 03:40) Ct Abdomen Pelvis (05/11/25 06:50) Procalcitonin (05/11/25 03:39) Troponin (Single) (05/11/25 03:39) Potassium Cl Sr Tablet (K-Dur Tablet) (05/11/25 04:13) Normal Saline 1000ml (Sodium Chloride 10 (05/11/25 04:25) Potassium Cl 40meq/1/2ns 520ml ([place] (05/11/25 08:00) Morphine 4mg/Ml Inj. (Morphine Inj.) (05/11/25 05:45) Ua W/Microscopic, Cult If Ind (05/11/25 07:20) Direct Bili (05/11/25 03:39) Hgb A1c (05/11/25 03:39) Lipid Panel (05/11/25 03:39) TSH (05/11/25 03:39) Vital Signs 05/11/25 05/11/25 05/11/25 03:09 03:24 04:54 Temp 97.8 Pulse 86 69 Resp 16 18 18 B/P (MAP) 129/72 115/68 (84) Pulse Ox 97 100 O2 Flow Rate 0 Laboratory Tests Test 05/11/25 03:39 White Blood Count 9.7 Red Blood Count 2.96 L Hemoglobin 11.0 L Hematocrit 31.6 L Mean Corpuscular Volume 106.7 H Mean Corpuscular Hemoglobin 37.3 H Mean Corpuscular Hemoglobin Concent 34.9 Red Cell Distribution Width 14.1 Platelet Count 183 Mean Platelet Volume 7.4 Neutrophils (%) (Auto) 65.4 Lymphocytes (%) (Auto) 21.4 Monocytes (%) (Auto) 11.8 Eosinophils (%) (Auto) 0.8 Basophils (%) (Auto) 0.6 Neutrophils # (Auto) 6.3 Lymphocytes # (Auto) 2.1 Monocytes # (Auto) 1.1 H Eosinophils # (Auto) 0.1 Basophils # (Auto) 0.1 CBC Comment Sodium Level 132 L Potassium Level 2.6 *L Chloride Level 97 L Carbon Dioxide Level 23.1 L Anion Gap 12 Blood Urea Nitrogen 9 Creatinine 0.77 Estimated GFR/1.73 m2 78 BUN/Creatinine Ratio 11.7 Glucose Level 119 H Hemoglobin A1c 4.1 L Calcium Level 8.0 L Total Bilirubin 4.8 H Direct Bilirubin 2.9 H Aspartate Amino Transf (AST/SGOT) 87 H Alanine Aminotransferase (ALT/SGPT) 40 Alkaline Phosphatase 124 H Troponin I High Sensitivity 8 Total Protein 6.5 Albumin 2.5 L Globulin 4.0 Albumin/Globulin Ratio 0.6 L Triglycerides Level 94 Cholesterol Level 107 LDL Cholesterol 67 HDL Cholesterol 22 L Cholesterol/HDL Ratio 4.9 Lipase 199 H Procalcitonin 0.37 Thyroid Stimulating Hormone (TSH) 1.12 Chemistry Comments Medical Decision Making Findings Patient presents to the emergency room with chief complaint of abdominal pain. Differentials include but are not limited to gastritis cholecystitis pancreatitis diverticulitis appendicitis small-bowel obstruction therefore emergent labs and CT scan ordered. CT scan negative for obstruction but does show constipation for which the patient does endorse. Patient is status post cholecystectomy therefore ultrasound was not ordered. Noted elevation of bilirubin along with pancreatitis. Consideration of gallstone pancreatitis. IV fluids initiated for patient is pancreatitis. Patient's case is complicated secondary to scleroderma which can cause pancreatitis in and of itself however in the light of obstructive process shown by liver enzymes compared to previous patient requires further investigation. Patient denies any significant alcohol consumption Departure Admitted to Inpatient Unit: yes, to hospitalist Impression: Primary Impression: Pancreatitis Additional Impressions: Hypokalemia Elevated bilirubin Scleroderma Constipation Condition: Guarded Referrals: NO PRIMARY CARE PROVIDER (PCP) Signature Scribe Signature: No scribe Attestation: The note accurately reflects work and decisions made by me.Gus Gates MD 05/14/25 18:59 GUS GATES MD May 11, 2025 03:39
[2025-05-11] MEDS: morphine 4 MG/ML inj SYRINge IV ONE ×2 (03:47→05:59)
[2025-05-11] MEDS: ondansetron/PF 4mg/2ml inj IV ONE (03:47)
[2025-05-11 03:48] LABS: BASOPHILS # (AUTO) 0.1 X10'3 (0-0.2); BASOPHILS % (AUTO) 0.6 % (0-1); EOSINOPHILS # (AUTO) 0.1 X10'3 (0-0.9); EOSINOPHILS % (AUTO) 0.8 % (0-6); HEMATOCRIT 31.6 % (35.0-45.0); LYMPHOCYTES # (AUTO) 2.1 X10'3 (1.1-4.8); LYMPHOCYTES % (AUTO) 21.4 % (21-51); MEAN CORPUSCULAR HEMOGLOBIN 37.3 PG (27.0-31.0); MEAN CORPUSCULAR HGB CONC 34.9 g/dL (33.0-36.5); MEAN CORPUSCULAR VOLUME 106.7 FL (78-98); MEAN PLATELET VOLUME 7.4 FL (7.4-10.4); MONOCYTES # (AUTO) 1.1 X10'3 (0-0.9); MONOCYTES % (AUTO) 11.8 % (2-12); NEUTROPHILS # (AUTO) 6.3 X10'3 (1.8-7.7); NEUTROPHILS % (AUTO) 65.4 % (42-75); PLATELET COUNT 183 X10'3 (140-440); RED BLOOD COUNT 2.96 X10'6 (4.20-5.60); RED CELL DISTRIBUTION WIDTH 14.1 % (11.5-14.5); WHITE BLOOD COUNT 9.7 X10'3 (4.5-11.0)
[2025-05-11] MEDS: normal saline 1000ML IV soln IVB ONE (03:48)
[2025-05-11 04:06] LABS: ALANINE AMINOTRANSFERASE 40 U/L (12-78); ALBUMIN 2.5 G/DL (3.4-5.0); ALKALINE PHOSPHATASE 124 IU/L (46-116); ANION GAP 12 (8-16); ASPARTATE AMINO TRANSFERASE 87 U/L (10-37); BILIRUBIN,TOTAL 4.8 MG/DL (0.1-1.0); BLOOD UREA NITROGEN 9 MG/DL (7-18); BUN/CREATININE RATIO 11.7 (10.0-20.0); CHLORIDE 97 MMOL/L (99-107); CREATININE 0.77 MG/DL (0.40-0.90); GLUCOSE 119 MG/DL (70-104); LIPASE 199 U/L (16-77); SODIUM 132 MMOL/L (135-145); TOTAL CARBON DIOXIDE 23.1 MMOL/L (24-32); eCRCL 86 ML/MIN; eGFR 78 ML/MIN
[2025-05-11 04:09] LABS: POTASSIUM 2.6 MMOL/L (3.5-5.1)
[2025-05-11] MEDS: potassium Cl 20 mEq SR tablet PO STA (04:18)
[2025-05-11 04:19] LABS: ALBUMIN/GLOBULIN RATIO 0.6 (1.1-1.5); TOTAL PROTEIN 6.5 G/DL (6.4-8.2)
[2025-05-11] MEDS: normal saline 1000ml 1,000 ML IV ONE (04:53)
[2025-05-11] MEDS ORDERED: SILD20TA14 PO (04:58)
[2025-05-11] MEDS ORDERED: PRUC1TAB PO (04:58)
[2025-05-11] MEDS ORDERED: HYDR200T73 PO (04:58)
--- NOTE | 2025-05-11 05:17 | RADIOLOGY REPORT ---
EXAM: CT Abdomen and Pelvis Without Intravenous Contrast CLINICAL INDICATION: Pain TECHNIQUE: Axial computed tomography images of the abdomen and pelvis without intravenous contrast. This CT exam was performed using one or more of the following dose reduction techniques: automated exposure control, adjustment of the mA and/or kV according to patient size, and/or use of iterative r econstruction technique. COMPARISON: CT Abdomen Pelvis dated 09/15/24 FINDINGS: LUNG BASES: See below. PLEURAL SPACE: Bilateral pleural effusions. Partially visualized COPD. MEDIASTINUM: Small esophageal hiatal hernia. ABDOMEN: LIVER: Hepatomegaly with fatty infiltration. GALLBLADDER AND BILE DUCTS: Unremarkable. No calcified stones. No ductal dilation. PANCREAS: Unremarkable. No ductal dilation. SPLEEN: Unremarkable. No splenomegaly. ADRENALS: Unremarkable. No mass. KIDNEYS AND URETERS: Punctate right nephrolithiasis without hydronephrosis. Probable subcentimeter proteinaceous renal cyst on the left. STOMACH AND BOWEL: Apparent wall thickening of the gastric wall concerning for gastritis. Clinical correlation is recommended. Fecal retention in the colon consistent with constipation. No obstructi on. PELVIS: APPENDIX: No findings to suggest acute appendicitis. BLADDER: Unremarkable. No stones. REPRODUCTIVE: Unremarkable as visualized. ABDOMEN and PELVIS: INTRAPERITONEAL SPACE: Ascites. No free air. BONES/JOINTS: No acute fracture. No dislocation. SOFT TISSUES: Unremarkable. VASCULATURE: Unremarkable. No abdominal aortic aneurysm. LYMPH NODES: Unremarkable. No enlarged lymph nodes. IMPRESSION: 1. Apparent wall thickening of the gastric wall concerning for gastritis. Clinical correlation is r ecommended. 2. Ascites. 3. Small esophageal hiatal hernia. 4. Hepatomegaly with fatty infiltration. 5. Fecal retention in the colon consistent with constipation. 6. Punctate right nephrolithiasis without hydronephrosis.
[2025-05-11] MEDS ORDERED: normal saline 1000ml 1,000 ML IV SCH (06:10)
[2025-05-11] MEDS ORDERED: ondansetron/PF 4mg/2ml inj IV PRN (06:10)
[2025-05-11] MEDS ORDERED: potassium Cl 20 mEq SR tablet PO PRN (06:10)
[2025-05-11] MEDS ORDERED: acetaminophen 325mg tablet PO PRN (06:10)
[2025-05-11] MEDS ORDERED: mag hydrox/Alum hydrox/simeth 30ml oral suspension PO PRN (06:10)
[2025-05-11] MEDS ORDERED: magnesium hydroxide 30ml (MOM) UD suspension PO PRN (06:10)
[2025-05-11] MEDS ORDERED: magnesium Cl slow-release 64mg tablet PO PRN (06:10)
[2025-05-11] MEDS ORDERED: magnesium sulf-water 2g/50mL 50 ML IV PRN (06:10)
[2025-05-11] MEDS ORDERED: mineral oil 133ml enema RC PRN (06:10)
[2025-05-11] MEDS ORDERED: magnesium sulf-water 4G/100mL 100 ML IV PRN (06:10)
[2025-05-11] MEDS ORDERED: potassium Cl 40MEQ/1/2NS 520ml 520 ML IV PRN (06:10)
--- NOTE | 2025-05-11 06:13 | HISTORY AND PHYSICAL-Residence ---
History & Physical Providers to CC Resident Creating Document: JAE GONSALES, RES CC: THAO DOZIER MD ~ History of Present Illness Primary Medical Doctor: DR NEAL Reason for Admit\Complaint: Abdominal pain and constipation History of Present Illness A 55-year-old female with a past medical history of scleroderma, systemic sclerosis and Raynaud's disease presented to the ED with abdominal pain and distention over the last two days. Patient states that she has pain in the abdomen in the epigastric region in the in severity, stabbing in character, radiating to the back. Patient does not have any aggravating or relieving factors. Patient does not have appetite. Patient also states that she had a last bowel movement two days ago which was very incomplete and has constipation over the years since the diagnosis of systemic sclerosis in 2009. Patient has tried Colace, lactulose and MiraLax but nothing has helped. Patient also has associated nausea and vomiting with multiple episodes every day with the vomitus containing clear liquids or yellowish liquid or food. Patient has associated shortness of breaths from pain and abdominal distention. Patient also states that she had numbness in her bilateral lower extremities from abdominal distention constipation that has been present since a year. Patient underwent dilatation of her esophageal sphincter and multiple manometric studies which she does not remember the results of. Patient had dysphagia, has not clearly specified if to solids or liquids or both. Patient went to the ED in view of abdominal distention over a month ago when she was given naltrexone Protonix but that did not help. Patient underwent multiple colonoscopies and EGDs with the last one a month ago which showed normal findings. Allergies: Coded Allergies: Penicillins (Verified Allergy, Severe, THROAT SWELLS, BREATHING TROUBLE, 09/10/24) diatrizoate meglumine (Verified Allergy, Severe, SWELLING/HIVES, 09/12/24) diatrizoate sodium (Verified Allergy, Severe, SWELLING/HIVES, 09/12/24) iodine (Verified Allergy, Severe, RASH/SWELLING, 09/10/24) Bee Pollen (Verified Allergy, Unknown, 09/10/24) Uncoded Allergies: IV CONTRAST (Allergy, Severe, SWELLING, HIVES, 09/12/24) Home Medications Home Medications Active Reported Prucalopride (Prucalopride Succinate) 1 Mg Tablet Plaquenil* (Hydroxychloroquine Sulfate) 200 Mg Tablet 1 Tab PO BID Sildenafil (Sildenafil Citrate) 20 Mg Tablet 1 Tab PO TID Estradiol 1 Mg Tablet PO Rosuvastatin Calcium 10 Mg Tablet 1 Tab PO HS Losartan Potassium 50 Mg Tablet 1 Tab PO DAILY Famotidine 20 Mg Tablet 1 Tab PO BID Bupropion Xl (Bupropion HCl) 150 Mg Tab.er.24h 1 Tab PO DAILY Buspirone HCl 10 Mg Tablet 1 Tab PO TID Paroxetine HCl 20 Mg Tablet 1 Tab PO DAILY Nifedipine Er* (Nifedipine) 60 Mg Tab.er2.24 1 Tab PO DAILY Past Medical History Past Medical History Systemic sclerosis Gastroparesis Scleroderma Rheumatoid arthritis Raynaud's disease Past Surgical History Surgical History Comment Hysterectomy Cholecystectomy Orthopedic surgeries Hernia repair Past Social History Social History Comment Patient does not smoke Used to consume alcohol occasionally and quit eight months ago Does not consume marijuana or illicit drugs Lives at home with family Drug Use: None Lives In: Home ROS ROS All other systems reviewed in full and negative except for the pertinent positives mentioned in the HPI Exam Vitals: Vital Signs Date Time Temp Pulse Resp B/P (MAP) Pulse Ox O2 Delivery O2 Flow Rate FiO2 05/11/25 04:54 69 18 115/68 (84) 100 05/11/25 03:09 97.8 0 General: General: Alert, awake, oriented, in severe distress HEENT: PERRLA, no icterus, pallor, lymphadenopathy, carotid bruit Respiratory system: Bilateral vesicular breath sounds heard, no adventitious breath sounds CVS: S1-S2 heard, no murmurs/rubs/gallop GI: Hard to palpate, rigid, distended abdomen with generalized tenderness, organomegaly could not be clearly appreciated, bowel sounds present Neuro: No focal neurological deficits present Extremities: No edema cyanosis clubbing/deformities Skin: Warm and dry Diagnostic Data Last Recorded Lab Results: 05/11/25 0339 05/11/25 0339 Advance Care Planning Advanced Care plannin - 30 Minutes (I spent 20 minutes discussing various resuscitative measures and the patient decided to be full code) Additional Plan Assessment: A 55-year-old female with multiple medical comorbidities presented to the ED with abdominal pain and abdominal distention. Patient is admitted for the evaluation management of acute pancreatitis, constipation, hypokalemia. Plan: Possible acute pancreatitis Suspicion for gallstone pancreatitis Underlying gastritis can not be excluded Hyperbilirubinemia Ascites Elevated lipase CT abdomen: Apparent wall thickening of the gastric wall concerning for gastritis. Clinical correlation is recommended. Ascites. Small esophageal hiatal hernia. Hepatomegaly with fatty infiltration. Fecal retention in the colon consistent with constipation. Punctate right nephrolithiasis without hydronephrosis. IV fluids at 100 cc/hour Pain management, IV Zofran q.6h p.r.n. NPO Follow up with the MRCP Consult GI in view of ERCP Consult with backpackers manager if therapeutic tap is required Severe constipation Bowel obstruction, rule out Mineral oil enema Follow up with x-ray abdomen Follow up with uTox Hypokalemia On potassium replacement protocol Monitor potassium levels Scleroderma Systemic sclerosis Raynaud's disease Pending med rec Dysphagia NPO Swallow evaluation Follow up with urinalysis Pending med rec Code status: Full code Diet: NPO DVT prophylaxis: Heparin Disposition: Admit to PCU, follow up with MRCP, GI consult in a.. Jae Gonsales MD Internal Medicine, PGY 1 Rounded on and examined patient with Dr Turcios The patient seems to have chronic idiopathic constipation. It is unclear if her pain is from this or something else, possibly related to her scleroderma. No radiographic evidence of pancreatitis or CBC obstruction. Does have some ascited, would cover for SBP if fevers but SBP shouldn't cause this pain. Needs IVF, electrolyte repletion and pain control. GI consult it needed. Stat Surgical consult and CT AP with contrast if any clinical worsening. Plan reviewed with bedside team. Patient seen through remote audiovisual assessment through HIPAA compliant setup. All labs, flowsheets, and images reviewed Cumulative nonprocedural care time spent in directed patient care = 30 min Date of Service: May 11, 2025 Billing Provider: THAO DOZIER MD, SIVA, RES May 11, 2025 06:12 THAO DOZIER MD May 11, 2025 07:43
[2025-05-11 06:51] LABS: MAGNESIUM 1.5 MG/DL (1.5-2.4); POTASSIUM 3.4 MMOL/L (3.5-5.1)
[2025-05-11] MEDS: ringers solution, lacted 1,000 ML IV SCH (07:06)
[2025-05-11] MEDS: potassium Cl 40MEQ/1/2NS 520ml 520 ML IV SCH (07:21)
[2025-05-11] MEDS: K and/or MAG REPLACEMENT MC SCH (07:21)
[2025-05-11] MEDS: heparin, porcine 5000 units/ml vial SQ SCH (07:22)
[2025-05-11 07:42] LABS: URINE HCG NEGATIVE (NEG)
[2025-05-11 07:54] LABS: BILIRUBIN,URINE MODERATE (Neg); CLARITY,URINE SLIGHTLY CLOUDY (Clear); COLOR,URINE YELLOW (Yellow); GLUCOSE, URINE 100 mg/dl (Neg); KETONES,URINE 15 mg/dl (Neg); LEUKOCYTE ESTERASE ,URINE NEGATIVE (Neg); OCCULT BLOOD,URINE NEGATIVE (Neg); PROTEIN,URINE TRACE mg/dl (Neg); UROBILINOGEN,URINE >=8.0 E.U/dL (0.2-1.0)
[2025-05-11 07:55] LABS: URINE AMPHETAMINE SCREEN NEGATIVE (Neg); URINE BARBITUATE SCREEN NEGATIVE (Neg); URINE BENZODIAZEPINES SCREEN NEGATIVE (Neg); URINE CANNABINOID SCREEN POSITIVE (Neg); URINE COCAINE SCREEN NEGATIVE (Neg); URINE METHADONE SCREEN NEGATIVE (Neg); URINE OPIATE SCREEN POSITIVE (Neg); URINE PHENCYCLIDINE SCREEN NEGATIVE (Neg)
[2025-05-11 07:59] LABS: UA COLLECTION TYPE CLN CATCH MIDSTREAM
[2025-05-11 08:00] LABS: NITRITES, URINE NEGATIVE (Neg)
[2025-05-11] MEDS ORDERED: dextrose 50%-water 50ml dispensing syringe IV ONE (08:00)
[2025-05-11] MEDS: docusate sod 100mg capsule PO SCH (08:00)
[2025-05-11 08:01] LABS: RBC,URINE NONE SEEN /HPF (0-2); WBC,URINE 0-4 /HPF (0-4)
[2025-05-11 08:02] LABS: BACTERIA,URINE 2+ /HPF (Neg); MUCUS STRANDS NONE SEEN /LPF (Neg); SQUAMOUS EPITHELIAL CELL,UR MANY /LPF (FEW)
[2025-05-11] MEDS: BUPROPION HCL 150MG XL 24 HR 150 MG TAB PO SCH (08:49)
[2025-05-11] MEDS: hydroxychloroquine 200mg tablet PO SCH (08:49)
[2025-05-11] MEDS: pantoprazole 40 MG vial IV SCH (08:49)
[2025-05-11] MEDS: potassium Cl 20 mEq SR tablet PO PRN (08:50)
[2025-05-11] MEDS: busPIRone 5mg tablet PO SCH (08:50)
[2025-05-11] MEDS: PARoxetine 20mg tablet PO SCH (08:50)
[2025-05-11] MEDS: NIFEdipine XL 30mg tablet PO SCH (08:50)
[2025-05-11 09:02] LABS: HDL CHOLESTEROL 22 MG/DL (35-60); HEMOGLOBIN A1C 4.1 % (4.5-6.2); LDL CHOLESTEROL 67 MG/DL (50-100); THYROID STIMULATING HORMONE 1.12 ulU/ml (0.34-4.50)
[2025-05-11 09:09] LABS: BILIRUBIN,DIRECT 2.9 MG/DL (0-0.3); CHOL/HDL RATIO 4.9 (0.00-4.99); CHOLESTEROL 107 MG/DL (0-200); TRIGLYCERIDES 94 MG/DL (20-135)
--- NOTE | 2025-05-11 11:00 | RADIOLOGY REPORT ---
PROCEDURE: MR MRCP Indication: gall stone pancreattis COMPARISON: MR MRCP on DOS: 09/13/24, CT abdomen 05/11/2025 TECHNIQUE: Multiplanar multisequence images of the abdomen are obtianed per MRCP protocol. FINDINGS: The gallbladderm is removed. CBD measures 7 mm. No evidence for choledocholithiasis. Pancreatic kate t not well visualized, does not appear dilated. Intrahepatic ducts are nondilated. Adrenal glands, spleen unremarkable in shape. Pancreatic parenchymal atrophy. Peripancreatic, mesente edwin edema. Moderate volume of ascites fluid. No T2 hyperintense lesions in the liver. Gastric wall edema and thickening most pronounced along the distal stomach. There is also bowel wall edema and thickening of the small and large bowel loops that are imaged on this examination. Colonic diverticula. Tiny bilateral pleural effusions. Bilateral atelectasis / consolidation. No hydronephrosis. 11 mm left renal midpole exophytic lesion IMPRESSION: Cholecystectomy. Common bile duct diameter measuring 7 mm, likely reflective of underlying cholecystectomy. No evidenc e of choledocholithiasis. Pancreatic duct not well characterized. Moderate volume of ascites fluid. Extensive bowel wall edema and thickening of the stomach, small and large bowel with differential con siderations including gastritis, enteritis/colitis, inflammatory bowel disease. Mesenteric edema, peripancreatic edema. Correlate with appropriate lab values to exclude pancreatitis . Tiny bilateral pleural effusions. Left renal midpole exophytic lesion measuring 11 mm, likely hemorrhagic/proteinaceous cysts. Recomme nd renal ultrasound to characterize and exclude solid mass. Other findings as described.
[2025-05-11] MEDS: HYDROcodone/acetaminophen 5mg/325mg tablet PO PRN (12:05)
--- NOTE | 2025-05-11 14:20 | RADIOLOGY REPORT ---
RENAL ULTRASOUND CLINICAL HISTORY: to exclude intra reanl patho TECHNIQUE: Multiple grayscale ultrasound images were obtained through the kidneys and urinary bladder . COMPARISON: CT abdomen and pelvis from same day FINDINGS: Right kidney: Measures 10.9 x 3.7 x 4.9 cm. No hydronephrosis. Left kidney: Measures 11.6 x 4.7 x 4.9 cm. No hydronephrosis. Urinary bladder: Not well seen. Seen to better advantage on same day CT Moderate ascites. IMPRESSION: 1. Normal size kidneys without evidence of hydronephrosis. 2. Moderate ascites.
[2025-05-11] MEDS: sildenafil citrate 20mg tablet PO SCH (16:22)
[2025-05-11] MEDS: magnesium sulf-water 4G/100mL 100 ML IV ONE (16:22)
[2025-05-11] MEDS: morphine 2 MG/ML inj. syringe IV PRN (16:23)
[2025-05-11 17:08] LABS: GLUCOSE,BODY FLUID 128 MG/DL; LDH,BODY FLUID 26 U/L
[2025-05-11 17:32] LABS: TOTAL PROTEIN,BODY FLUID < 2.0 G/DL
[2025-05-11 17:51] LABS: BFSOURCE ASCITES FLD
[2025-05-11 17:52] LABS: BF RBC COUNT 17 /CU MM; BF WBC COUNT 41 /CU MM (0-1000); BFAPPEAR CLEAR; BFCOLOR YELLOW; BFVOLUME 50 ML; EOSINOPHILS,BODY FLUID 1 %; LYMPHOCYTES,BODY FLUID 10 %; MONOCYTES,BODY FLUID 32 %; NEUTROPHILS,BODY FLUID 57 %
[2025-05-11 17:53] LABS: BF MESOTHELIAL CELLS FEW
--- NOTE | 2025-05-11 18:07 | PROGRESS NOTE ---
Progress Note - Angio Providers to CC ~ Angio Progress Note: After explaining risks benefits alt of paracentesis, a time out was done. LLQ access for 3600cc thin yuli yellow fluid removal without complications, EBL zero. Dictated. EMILY BEE MD May 11, 2025 18:06
--- NOTE | 2025-05-11 18:12 | RADIOLOGY REPORT ---
ULTRASOUND-GUIDED PARACENTESIS PRE-PROCEDURE DIAGNOSIS: Ascites POST-PROCEDURE DIAGNOSIS: Same HISTORY: Same COMPLICATIONS: None ESTIMATED BLOOD LOSS: 0 PROCEDURE: The nature, alternatives, and risks of the procedure were discussed with the patient and informed consent was disclosed. Ultrasound was used to examine the left lower quadrant. An appropriate position was marked on the skin. After sterile preparation and draping, 1% Lidocaine 10 mL subcutaneous anesthesia was administered. The peritoneal space was entered with a 5-[place] Yueh catheter. Approximately 3600 mL of thin yuli fluid was removed. Samples were sent to the lab for analysis. The patient tolerated the procedure well without complication. FINDINGS: Moderate-large volume ascites IMPRESSION: Successful diagnostic and and therapeutic paracentesis.
[2025-05-11] MEDS: atorvastatin 20mg tablet PO SCH (20:17)
[2025-05-12] VITALS (9 sets, daily range): BP systolic 80–106; BP diastolic 41–53; PULSE 63–87; RESP 8–18; TEMP 97.7–98.9; O2SAT 93–97
[2025-05-12] MEDS: ringers solution, lacted 1,000 ML IV ONE (00:22)
[2025-05-12 04:24] LABS: BASOPHILS # (AUTO) 0.1 X10'3 (0-0.2); BASOPHILS % (AUTO) 0.8 % (0-1); EOSINOPHILS # (AUTO) 0.1 X10'3 (0-0.9); EOSINOPHILS % (AUTO) 0.9 % (0-6); HEMATOCRIT 28.4 % (35.0-45.0); HEMOGLOBIN 9.8 g/dl (12.0-16.0); LYMPHOCYTES # (AUTO) 2.1 X10'3 (1.1-4.8); LYMPHOCYTES % (AUTO) 27.7 % (21-51); MEAN CORPUSCULAR HEMOGLOBIN 37.3 PG (27.0-31.0); MEAN CORPUSCULAR HGB CONC 34.6 g/dL (33.0-36.5); MEAN PLATELET VOLUME 7.7 FL (7.4-10.4); MONOCYTES # (AUTO) 0.9 X10'3 (0-0.9); MONOCYTES % (AUTO) 12.6 % (2-12); NEUTROPHILS # (AUTO) 4.3 X10'3 (1.8-7.7); PLATELET COUNT 160 X10'3 (140-440); RED BLOOD COUNT 2.62 X10'6 (4.20-5.60); RED CELL DISTRIBUTION WIDTH 14.1 % (11.5-14.5); WHITE BLOOD COUNT 7.4 X10'3 (4.5-11.0)
[2025-05-12 04:41] LABS: ALANINE AMINOTRANSFERASE 38 U/L (12-78); ALBUMIN/GLOBULIN RATIO 0.6 (1.1-1.5); ALKALINE PHOSPHATASE 107 IU/L (46-116); ANION GAP 7 (8-16); ASPARTATE AMINO TRANSFERASE 73 U/L (10-37); BILIRUBIN,TOTAL 3.7 MG/DL (0.1-1.0); BLOOD UREA NITROGEN 6 MG/DL (7-18); BUN/CREATININE RATIO 8.2 (10.0-20.0); CALCIUM 7.6 MG/DL (8.5-10.1); CHLORIDE 104 MMOL/L (99-107); CREATININE 0.73 MG/DL (0.40-0.90); GLUCOSE 118 MG/DL (70-104); LIPASE 61 U/L (16-77); POTASSIUM 3.2 MMOL/L (3.5-5.1); SODIUM 136 MMOL/L (135-145); TOTAL CARBON DIOXIDE 24.9 MMOL/L (24-32); TOTAL PROTEIN 5.6 G/DL (6.4-8.2); eCRCL 90 ML/MIN; eGFR 83 ML/MIN
[2025-05-12 07:11] LABS: HBSAG SCREEN Negative (Negative); HEPATITIS C VIRUS ANTIBODY Non Reactive (Non Reactive)
[2025-05-12] MEDS: ondansetron/PF 4mg/2ml inj IV PRN (07:42)
--- NOTE | 2025-05-12 08:50 | PROGRESS NOTE- Residence ---
Progress Note - Resident Providers to CC Resident Creating Document: GEGE BARRON RES ~ Antibiotic Timeout Antibiotic Ordered?: Yes Subjective Pt was seen at the bedside and she underwent the Paracentesis thin yuli yellow fluid for 3.[address] Mack. BP was on the soft side this morning without having any symptoms. She reported that she was on lactulose twice daily at home and still not having any BM yet. She endorsed that she has quit drinking alcohol a year ago and used to drink heavy EtOH 3 times per week. She was diagnosed with Sclerosis since 2009. Patient endorsed that she has anaphylactic shock with the penicillin before. She has nausea which is uncontrolled with a ondansetron and subjectively attributed from the morphine. Objective Vital Signs Date Time Temp Pulse Resp B/P (MAP) Pulse Ox O2 Delivery O2 Flow Rate FiO2 05/12/25 07:45 89/53 (65) 05/12/25 06:00 98.4 77 18 95 Room Air 05/11/25 11:18 0 Result Diagram: 05/12/25 0405 05/12/25 0405 Vitals were stable at the moment with temp 98.4 F, NC 77/minute, RR 18/minute, BP 89/53 mm Hg, pulse oximetry 95% on room air. On exam, General: ill appearing look, Well alert, well oriented, not confused, not agitated, not in acute distress, well cooperated during the physical. HEENT: facial telangiectasia, Conjunctive are pink, sclerae clear, no icterus, pupil is equal in both sides, reactive to light, no ear discharge, no pharyngeal erythema or an edema, mouth and lips are dry. Neck and chest: Widespread spider nevi on the upper chest, Supple, no JVD, no lymphadenopathy and thyromegaly. Lungs:Equal air entry on both lungs, no additional sounds Heart: S1-S2 regular sinus rhythm and, regular rate, no gallops, no rubs, no murmurs Abdomen: No visible peristalsis, Bowel sounds present on auscultation, slightly globally distended, soft, nontender, no guarding, no rigidity Extremities: No obvious deformities, no pitting edema bilaterally, capillary refill intact, able to wiggle toes both sides, peripheral pulsations are intact on both sides DAIRY EQUIPMENT INSTALLER: No focal neurological deficits, no motor and sensory weakness in all 4 extremities, could move all 4 extremities Musculoskeletal: No joint swelling, deformities, inflammations, and no scoliosis and back tenderness Skin: No active skin lesions and rashes Assessment Assessment A 55 years old female with PMH of systemic sclerosis with scleroderma, Raynaud's disease with the Raynaud's phenomenon, gastroparesis, hx of diverticulitis, s/p hysterectomy, cholecystectomy, s/p hernia repair surgery presented with acute on chronic severe upper abdominal pain woke her up in the middle of 2 midnight ago who is found to have mildly elevated Lipase and LFTs with hyperbilirubinaemia, and electrolytes imbalance- hypokalemia. Plan Plan # Acute painful abdomen from decompensated liver disease # Portal Hypertension # fatty liver infiltration # Hx of Constipation # s/p cholecystectomy, CBD dilation with 7mm # Ruled out Gallstone pancreatitis, acute pancreatitis -her acute upper abd pain from possible SBP (ruled out with ascitic WBC <250) Vs Systemic sclerosis Vs acute pancreatitis Vs Chronic Constipation -CT abdomen: Apparent wall thickening of the gastric wall concerning for gastritis. Clinical correlation is recommended. Ascites. Small esophageal hiatal hernia. Hepatomegaly with fatty infiltration. Fecal retention in the colon consistent with constipation. Punctate right nephrolithiasis without hydronephrosis. -MRCP showed Cholecystectomy. Common bile duct diameter measuring 7 mm, likely reflective of underlying cholecystectomy. No evidence of choledocholithiasis. Pancreatic duct not well characterized. Moderate volume of ascites fluid. Extensive bowel wall edema and thickening of the stomach, small and large bowel with differential considerations including gastritis, enteritis/colitis, inflammatory bowel disease. Mesenteric edema, peripancreatic edema. Correlate with appropriate lab values to exclude pancreatitis. Tiny bilateral pleural effusions. Left renal midpole exophytic lesion measuring 11 mm, likely hemorrhagic/proteinaceous cysts. Recommend renal ultrasound to characterize and exclude solid mass. -she was given IV LR -pain control -paracentesis was done, 3.7 L thing clear yuli colored yellow ascites fluid was sent out for analysis indicating that SAAG showed >1.1 (Asct fluid Albu <0.6 and serum Albu 2) from possible Portal Hypertension source, C&S, cytology was pending. -Started PO rifampin 550 mgBID and lactulose 30 ml TID for at least 2-3 times of BM per day, continue with Laxatives -BLd C&S showed no growth after 1 day -prolonged PT but normal Plt count -f/up w/ AFP -full liquid diet and advance as tolerated with Nausea -ruled out Bowel obstruction with CT abd and having BM with lactulose # Mild transaminitis # Hx of Substance abuse (EtoH, cannabinoid, and opiate) # Downtrending direct hyperbilirubinamia # selective hypoalbuminemia # Electrolyte imbalance - hypokalemia # Mildly elevated lipase with possible pancreatitis # hyperchromic macrocytic anemia -CT AP and MRCP ruled out the choledocholithiasis, possibly from EtOH abuse Vs Systemic sclerosis component or other comorbid autoimmune liver disorders eg PSC -AST:ALT 2:1 -Lipase trending down with lesser abd pain -given one time dose of ARCELIA ALbumin 25% for low BP and low serum albumin # Hx of Systemic sclerosis, scleroderma, CREST syndrome # Hx of Raynaud's disease # Hx of Pulmonary HTN from Systemic sclerosis -Renal USG Showed IMPRESSION: 1. Normal size kidneys without evidence of hydronephrosis. 2. Moderate ascites. -Swallow eval done, dysphagia from SS is improved, and continue Full liquid diet and advance as tolerated. -Med rec was done and continued appropriately -suggested for the outpatient follow up CODE STATUS: Full code DVT prophylaxis: Sc heparin Analgesia/sedation: [place] as needed Lines/tubes: Peripheral IV GI prophylaxis: Protonix Nutrition: Regular Prognosis: guarded Disposition: Continue medical management including antibiotics, decompensated liver failure management plan, pain control, PT eval and DC plan. Patient's prognosis is very poor. Discussed with the patient's and the patient's Nikolas. Resident attestation: Patient was seen, examined and discussed with attending MD, Dr. Hein Critical care time 35 minutes. GEGE BARRON MD Internal Medicine Resident, PGY2 [facility] Date of Service: May 12, 2025 Billing Provider: LUCA HEIN MD Common Visit Codes: [id number] CARE 30-74 MIN GEGE BARRON, RES May 12, 2025 08:49 LUCA HEIN MD May 16, 2025 16:28
[2025-05-12] MEDS: albumin (human) 25% 100 ML IV solution IV ONE (09:25)
[2025-05-12] MEDS: CefTRIAXone/D5W-Rocephin 1gm 50 ML IV SCH (10:07)
[2025-05-12] MEDS ORDERED: metoclopramide 5 mg/ml inj IV PRN (10:35)
[2025-05-12] MEDS ORDERED: lactulose 20gm/30ml cup PO SCH (10:40)
[2025-05-12 13:17] LABS: INR 1.6 INR; PROTHROMBIN TIME 15.3 SECONDS (9.0-12.0)
[2025-05-12] MEDS: HYDROmorphone/PF 0.2 MG/ML SYRINGE IV PRN (14:41)
[2025-05-12] MEDS: lactulose 20gm/30ml cup PO SCH (14:41)
[2025-05-12] MEDS: rifaximin 550mg tablet PO SCH (19:39)
[2025-05-13 06:00] VITALS: BP 109/56; PULSE 82; RESP 18; TEMP 98.8; O2SAT 93
[2025-05-13 06:53] LABS: ALANINE AMINOTRANSFERASE 37 U/L (12-78); ALBUMIN 2.4 G/DL (3.4-5.0); ALBUMIN/GLOBULIN RATIO 0.8 (1.1-1.5); ALKALINE PHOSPHATASE 99 IU/L (46-116); ANION GAP 9 (8-16); ASPARTATE AMINO TRANSFERASE 67 U/L (10-37); BILIRUBIN,TOTAL 3.9 MG/DL (0.1-1.0); BLOOD UREA NITROGEN 7 MG/DL (7-18); BUN/CREATININE RATIO 9.6 (10.0-20.0); CALCIUM 7.7 MG/DL (8.5-10.1); CHLORIDE 102 MMOL/L (99-107); CREATININE 0.73 MG/DL (0.40-0.90); GLUCOSE 139 MG/DL (70-104); MAGNESIUM 1.7 MG/DL (1.5-2.4); POTASSIUM 3.4 MMOL/L (3.5-5.1); SODIUM 132 MMOL/L (135-145); TOTAL CARBON DIOXIDE 20.9 MMOL/L (24-32); TOTAL PROTEIN 5.6 G/DL (6.4-8.2); eCRCL 90 ML/MIN; eGFR 83 ML/MIN
[2025-05-13 07:06] LABS: BASOPHILS % (AUTO) 0.2 % (0-1); EOSINOPHILS % (AUTO) 0.1 % (0-6); HEMATOCRIT 25.7 % (35.0-45.0); HEMOGLOBIN 8.6 g/dl (12.0-16.0); LYMPHOCYTES % (AUTO) 16.8 % (21-51); MEAN CORPUSCULAR HEMOGLOBIN 35.9 PG (27.0-31.0); MEAN CORPUSCULAR HGB CONC 33.7 g/dL (33.0-36.5); MEAN CORPUSCULAR VOLUME 106.7 FL (78-98); MEAN PLATELET VOLUME 7.8 FL (7.4-10.4); MONOCYTES # (AUTO) 1.5 X10'3 (0-0.9); MONOCYTES % (AUTO) 13.1 % (2-12); NEUTROPHILS # (AUTO) 8.2 X10'3 (1.8-7.7); NEUTROPHILS % (AUTO) 69.8 % (42-75); PLATELET COUNT 170 X10'3 (140-440); RED BLOOD COUNT 2.41 X10'6 (4.20-5.60); RED CELL DISTRIBUTION WIDTH 14.6 % (11.5-14.5); WHITE BLOOD COUNT 11.8 X10'3 (4.5-11.0)
[2025-05-13 07:13] LABS: HEP B CORE AB, IGM Negative (Negative); HEP B CORE AB, TOT Negative (Negative)
[2025-05-13 09:23] VITALS: RESP 18; O2SAT 96
[2025-05-13 10:00] VITALS: BP 102/58; PULSE 79; RESP 16; TEMP 97.7; O2SAT 94
[2025-05-13] MEDS: lactulose 20gm/30ml cup PO SCH ×2 (12:50→21:31)
[2025-05-13] MEDS: HYDROmorphone inj. 0.5 MG/0.5 ML DISP.SYRIN IV PRN (17:10)
[2025-05-13 18:00] VITALS: BP 103/56; PULSE 77; RESP 15; TEMP 98; O2SAT 93
--- NOTE | 2025-05-13 19:33 | PROGRESS NOTE- Residence ---
Progress Note - Resident Providers to CC Resident Creating Document: GEGE BARRON RES ~ Antibiotic Timeout Antibiotic Ordered?: Yes Subjective Patient is complaining about the pain is not well-controlled although on the [place] and hydromorphone. Patient had a bowel movement 2 times yesterday and one time this morning. Objective Vital Signs Date Time Temp Pulse Resp B/P (MAP) Pulse Ox O2 Delivery O2 Flow Rate FiO2 05/13/25 18:28 16 05/13/25 10:00 97.7 79 102/58 (73) 94 Nasal Cannula 1.0 Result Diagram: 05/13/25 0544 05/13/25 0544 Vitals were stable at the moment. On exam, General: ill appearing look, Well alert, well oriented, not confused, not agitated, not in acute distress, well cooperated during the physical. HEENT: facial telangiectasia, Conjunctive are pink, sclerae clear, no icterus, pupil is equal in both sides, reactive to light, no ear discharge, no pharyngeal erythema or an edema, mouth and lips are dry. Neck and chest: Widespread spider nevi on the upper chest, Supple, no JVD, no lymphadenopathy and thyromegaly. Lungs:Equal air entry on both lungs, no additional sounds Heart: S1-S2 regular sinus rhythm and, regular rate, no gallops, no rubs, no murmurs Abdomen: No visible peristalsis, Bowel sounds present on auscultation, slightly globally distended, soft, nontender, no guarding, no rigidity Extremities: No obvious deformities, no pitting edema bilaterally, capillary refill intact, able to wiggle toes both sides, peripheral pulsations are intact on both sides LANDSCAPE ARTIST: No focal neurological deficits, no motor and sensory weakness in all 4 extremities, could move all 4 extremities Musculoskeletal: No joint swelling, deformities, inflammations, and no scoliosis and back tenderness Skin: No active skin lesions and rashes Coagulation Studies Laboratory Tests Test 05/12/25 12:44 Prothrombin Time 15.3 SECONDS (9.0-12.0) H INR International Normalized Ratio 1.6 INR Coagulation Comments Assessment Assessment A 55 years old female with PMH of systemic sclerosis with scleroderma, Raynaud's disease with the Raynaud's phenomenon, gastroparesis, hx of diverticulitis, s/p hysterectomy, cholecystectomy, s/p hernia repair surgery presented with acute on chronic severe upper abdominal pain woke her up in the middle of 2 midnight ago who is found to have mildly elevated Lipase and LFTs with hyperbilirubinaemia, and electrolytes imbalance- hypokalemia. Plan Plan # Acute painful abdomen from decompensated liver disease # Portal Hypertension # fatty liver infiltration # Hx of Constipation # s/p cholecystectomy, CBD dilation with 7mm # Ruled out Gallstone pancreatitis, acute pancreatitis 05/13/2025: pain control with IV hydromorphone 0.5 mg q.6 hours p.r.n., p.o. [place] 5 q.4 hours as needed -hyperbilirubinemia, trach ammonia to adjust lactulose frequency -continue p.o. lactulose 30 mL TID -stopped IV fluids, monitor I's and O's -protein diet was encouraged -pending AFP 05/12/25:-her acute upper abd pain from possible SBP (ruled out with ascitic WBC <250) Vs Systemic sclerosis Vs acute pancreatitis Vs Chronic Constipation -CT abdomen: Apparent wall thickening of the gastric wall concerning for gastritis. Clinical correlation is recommended. Ascites. Small esophageal hiatal hernia. Hepatomegaly with fatty infiltration. Fecal retention in the colon consistent with constipation. Punctate right nephrolithiasis without hydronephrosis. -MRCP showed Cholecystectomy. Common bile duct diameter measuring 7 mm, likely reflective of underlying cholecystectomy. No evidence of choledocholithiasis. Pancreatic duct not well characterized. Moderate volume of ascites fluid. Extensive bowel wall edema and thickening of the stomach, small and large bowel with differential considerations including gastritis, enteritis/colitis, inflammatory bowel disease. Mesenteric edema, peripancreatic edema. Correlate with appropriate lab values to exclude pancreatitis. Tiny bilateral pleural effusions. Left renal midpole exophytic lesion measuring 11 mm, likely hemorrhagic/proteinaceous cysts. Recommend renal ultrasound to characterize and exclude solid mass. -she was given IV LR -pain control -paracentesis was done, 3.7 L thing clear yuli colored yellow ascites fluid was sent out for analysis indicating that SAAG showed >1.1 (Asct fluid Albu <0.6 and serum Albu 2) from possible Portal Hypertension source, C&S, cytology was pending. -Started PO rifampin 550 mgBID and lactulose 30 ml TID for at least 2-3 times of BM per day, continue with Laxatives -BLd C&S showed no growth after 1 day -prolonged PT but normal Plt count -f/up w/ AFP -full liquid diet and advance as tolerated with Nausea -ruled out Bowel obstruction with CT abd and having BM with lactulose # Mild transaminitis # Hx of Substance abuse (EtoH, cannabinoid, and opiate) # Downtrending direct hyperbilirubinamia # selective hypoalbuminemia # Electrolyte imbalance - hypokalemia # Mildly elevated lipase with possible pancreatitis # hyperchromic macrocytic anemia 05/13/2025: Tracking LFT and bilirubin level -social media marketing manager and substance navigation were provided -control pain 05/12/25:-CT AP and MRCP ruled out the choledocholithiasis, possibly from EtOH abuse Vs Systemic sclerosis component or other comorbid autoimmune liver disorders eg PSC -AST:ALT 2:1 -Lipase trending down with lesser abd pain -given one time dose of ARCELIA ALbumin 25% for low BP and low serum albumin # Hx of Systemic sclerosis, scleroderma, CREST syndrome # Hx of Raynaud's disease # Hx of Pulmonary HTN from Systemic sclerosis -Renal USG Showed IMPRESSION: 1. Normal size kidneys without evidence of hydronephrosis. 2. Moderate ascites. -Swallow eval done, dysphagia from SS is improved, and continue Full liquid diet and advance as tolerated. -Med rec was done and continued appropriately -suggested for the outpatient follow up CODE STATUS: Full code DVT prophylaxis: Sc heparin Analgesia/sedation: [place] as needed Lines/tubes: Peripheral IV GI prophylaxis: Protonix Nutrition: Regular Prognosis: guarded Disposition: Continue medical management including antibiotics, decompensated liver failure management plan, pain control, PT eval and DC plan. Poor prognosis. Resident MD attestation: Patient was seen, examined and discussed with attending MD, Dr. Hein Critical care time 35 minutes. GEGE BARRON MD Internal Medicine Resident, PGY2 [facility] Date of Service: May 13, 2025 Billing Provider: LUCA HEIN MD Common Visit Codes: [id number] CARE 30-74 MIN GEGE BARRON, RES May 13, 2025 19:33 LUCA HEIN MD May 16, 2025 16:29
[2025-05-13 20:00] VITALS: RESP 18; O2SAT 96
[2025-05-13 22:00] VITALS: BP 130/66; PULSE 79; RESP 18; TEMP 98.3; O2SAT 97
[2025-05-14 06:00] VITALS: BP 130/66; PULSE 79; RESP 18; TEMP 98.3; O2SAT 97
[2025-05-14 06:08] LABS: ALANINE AMINOTRANSFERASE 42 U/L (12-78); ALBUMIN 2.4 G/DL (3.4-5.0); ALKALINE PHOSPHATASE 110 IU/L (46-116); ANION GAP 14 (8-16); ASPARTATE AMINO TRANSFERASE 73 U/L (10-37); BILIRUBIN,TOTAL 4.3 MG/DL (0.1-1.0); BLOOD UREA NITROGEN 8 MG/DL (7-18); BUN/CREATININE RATIO 8.8 (10.0-20.0); CHLORIDE 100 MMOL/L (99-107); CREATININE 0.91 MG/DL (0.40-0.90); GLUCOSE 122 MG/DL (70-104); MAGNESIUM 1.5 MG/DL (1.5-2.4); POTASSIUM 3.2 MMOL/L (3.5-5.1); SODIUM 131 MMOL/L (135-145); TOTAL CARBON DIOXIDE 17.1 MMOL/L (24-32); eCRCL 73 ML/MIN; eGFR 64 ML/MIN
[2025-05-14 06:14] LABS: ALBUMIN/GLOBULIN RATIO 0.8 (1.1-1.5); TOTAL PROTEIN 5.5 G/DL (6.4-8.2)
[2025-05-14 06:22] LABS: HEMOGLOBIN 10.5 g/dl (12.0-16.0)
[2025-05-14 06:47] LABS: BASOPHILS % (AUTO) 0.3 % (0-1); EOSINOPHILS % (AUTO) 0 % (0-6); HEMATOCRIT 30.3 % (35.0-45.0); LYMPHOCYTES # (AUTO) 0.6 X10'3 (1.1-4.8); LYMPHOCYTES % (AUTO) 16.1 % (21-51); MEAN CORPUSCULAR HEMOGLOBIN 36.7 PG (27.0-31.0); MEAN CORPUSCULAR HGB CONC 34.7 g/dL (33.0-36.5); MONOCYTES # (AUTO) 0.4 X10'3 (0-0.9); MONOCYTES % (AUTO) 9.3 % (2-12); NEUTROPHILS # (AUTO) 2.8 X10'3 (1.8-7.7); NEUTROPHILS % (AUTO) 74.3 % (42-75); PLATELET COUNT 173 X10'3 (140-440); RED BLOOD COUNT 2.86 X10'6 (4.20-5.60); RED CELL DISTRIBUTION WIDTH 14.5 % (11.5-14.5); WHITE BLOOD COUNT 3.8 X10'3 (4.5-11.0)
[2025-05-14 07:51] LABS: PLATELET ESTIMATE NORMAL; TOTAL CELLS COUNTED 100
[2025-05-14 07:52] LABS: BURR CELLS 1+; TOXIC VACUOLATION 1+
[2025-05-14 08:00] VITALS: RESP 18; O2SAT 90
[2025-05-14] MEDS ORDERED: potassium Cl 40MEQ/1/2NS 520ml 520 ML IV PRN (08:35)
[2025-05-14] MEDS ORDERED: POTASSIUM BICARB 20meq eff tab 20 MEQ TABLET.EFF PO SCH (08:35)
[2025-05-14] MEDS ORDERED: potassium Cl 20 mEq SR tablet PO PRN (08:35)
[2025-05-14] MEDS ORDERED: magnesium sulf-water 4G/100mL 100 ML IV PRN (08:35)
[2025-05-14] MEDS ORDERED: magnesium sulf-water 2g/50mL 50 ML IV PRN (08:35)
[2025-05-14] MEDS ORDERED: magnesium Cl slow-release 64mg tablet PO PRN (08:35)
[2025-05-14] MEDS: potassium Cl 20 mEq SR tablet PO PRN (09:16)
[2025-05-14 10:00] VITALS: BP 107/61; PULSE 79; RESP 14; TEMP 98.2; O2SAT 90
[2025-05-14] MEDS ORDERED: CefTRIAXone 2gm/D5W 50ml BAG 50 ML IV SCH (10:20)
[2025-05-14] MEDS: normal saline 1000ml 1,000 ML IV SCH (10:20)
[2025-05-14] MEDS: lactulose 20gm/30ml cup PO SCH ×2 (10:40→23:39)
[2025-05-14] MEDS: normal saline 1000ml 1,000 ML IV ONE ×2 (10:41→13:26)
[2025-05-14] MEDS ORDERED: POTASSIUM CHLORIDE 20 MEQ/15 ML oral solution PO PRN (11:00)
[2025-05-14] MEDS: POTASSIUM CHLORIDE 20 MEQ/15 ML oral solution PO PRN (12:03)
[2025-05-14] MEDS: metroNIDAZOLE-Flagyl 500mg/NS 100 ML IV SCH (12:18)
[2025-05-14] MEDS: ciprofloxacin lact 400MG/200ML 200 ML IV SCH (12:18)
[2025-05-14 17:01] VITALS: BP 108/64; PULSE 76; RESP 12; TEMP 98; O2SAT 94
--- NOTE | 2025-05-14 17:12 | PROGRESS NOTE- Residence ---
Progress Note - Resident Providers to CC Resident Creating Document: NICOLAS CARSON CC: LUCA HEIN MD ~ Antibiotic Timeout Antibiotic Ordered?: Yes Subjective Patient was seen at bedside today. She continues with significant abdominal pain, she is somnolent and falls asleep during our conversation. Denies fevers, chills, shortness of breaths or any other subjective symptoms Objective Vital Signs Date Time Temp Pulse Resp B/P (MAP) Pulse Ox O2 Delivery O2 Flow Rate FiO2 05/14/25 17:01 98.0 76 12 108/64 (79) 94 05/14/25 10:00 Room Air 05/13/25 10:00 1.0 Result Diagram: 05/14/25 0505/14/25 05 General: Somnolent, easy to arouse but falls back asleep, oriented x4 HEENT: Significant pallor present, no icterus, dry mucous membranes Neck: No masses and tenderness Resp: Unlabored. Lungs clear to auscultation bilaterally. Chest: Normal expansion Cardiovascular: Regular Rate and rhythm, normal S1 and S2 without murmur, rub or gallop Abdomen: Distended and significantly tender to palpation. bowel sounds present Neuro: No focal weakness in the upper and lower limb muscles, power of the muscles 5/5 bilateral upper and lower extremities, normal reflexes bilaterally. Cranial nerves intact Extremities: No cyanosis,clubbing or edema Skin: Warm and Dry. No lesions Psych: Normal affect Coagulation Studies Laboratory Tests Test 05/12/25 12:44 Prothrombin Time 15.3 SECONDS (9.0-12.0) H INR International Normalized Ratio 1.6 INR Coagulation Comments Assessment Assessment A 55 years old female with PMH of systemic sclerosis with scleroderma, Raynaud's disease with the Raynaud's phenomenon, gastroparesis, hx of diverticulitis, s/p hysterectomy, cholecystectomy, s/p hernia repair surgery presented with acute on chronic severe upper abdominal pain woke her up in the middle of 2 midnight ago who is found to have mildly elevated Lipase and LFTs with hyperbilirubinaemia, and electrolytes imbalance- hypokalemia. Plan Plan # Abdominal pain # Possible SBP # Sepsis likely secondary to above # Decompensated alcoholic liver cirrhosis, meld score 17, child Almanza class B # Portal Hypertension # fatty liver infiltration # Hx of Constipation # s/p cholecystectomy, CBD dilation with 7mm # Ruled out Gallstone pancreatitis Critical care time 35 minutes. 05/14/2025: Patient is significantly somnolent today She is also slightly hypotensive White count decreased to 3.8 from 11 Ammonia is up to 97 Lactic acid 4.1, 5.1 today Procalcitonin 7.47 Bilirubin is 4.3 Started on ciprofloxacin and Flagyl. Initially, patient was going to be started on ceftriaxone, however, significant allergy to penicillins 2 L of IV NS given. Will continue at 100 cc/hour Will follow up on lactic acid and procalcitonin levels Will transfer patient to PCU 05/13/2025: pain control with IV hydromorphone 0.5 mg q.6 hours p.r.n., p.o. [place] 5 q.4 hours as needed -hyperbilirubinemia, trach ammonia to adjust lactulose frequency -continue p.o. lactulose 30 mL TID -stopped IV fluids, monitor I's and O's -protein diet was encouraged -pending AFP 05/12/25:-her acute upper abd pain from possible SBP (ruled out with ascitic WBC <250) Vs Systemic sclerosis Vs acute pancreatitis Vs Chronic Constipation -CT abdomen: Apparent wall thickening of the gastric wall concerning for gastritis. Clinical correlation is recommended. Ascites. Small esophageal hiatal hernia. Hepatomegaly with fatty infiltration. Fecal retention in the colon consistent with constipation. Punctate right nephrolithiasis without hydronephrosis. -MRCP showed Cholecystectomy. Common bile duct diameter measuring 7 mm, likely reflective of underlying cholecystectomy. No evidence of choledocholithiasis. Pancreatic duct not well characterized. Moderate volume of ascites fluid. Extensive bowel wall edema and thickening of the stomach, small and large bowel with differential considerations including gastritis, enteritis/colitis, inflammatory bowel disease. Mesenteric edema, peripancreatic edema. Correlate with appropriate lab values to exclude pancreatitis. Tiny bilateral pleural effusions. Left renal midpole exophytic lesion measuring 11 mm, likely hemorrhagic/proteinaceous cysts. Recommend renal ultrasound to characterize and exclude solid mass. -she was given IV LR -pain control -paracentesis was done, 3.7 L thing clear yuli colored yellow ascites fluid was sent out for analysis indicating that SAAG showed >1.1 (Asct fluid Albu <0.6 and serum Albu 2) from possible Portal Hypertension source, C&S, cytology was pending. -Started PO rifampin 550 mgBID and lactulose 30 ml TID for at least 2-3 times of BM per day, continue with Laxatives -BLd C&S showed no growth after 1 day -prolonged PT but normal Plt count -f/up w/ AFP -full liquid diet and advance as tolerated with Nausea -ruled out Bowel obstruction with CT abd and having BM with lactulose # Mild transaminitis # Hx of Substance abuse (EtoH, cannabinoid, and opiate) # Downtrending direct hyperbilirubinamia # selective hypoalbuminemia # Electrolyte imbalance - hypokalemia, mild hyponatremia # Mildly elevated lipase with possible pancreatitis # hyperchromic macrocytic anemia 05/14/2025: Will continue IV fluids despite of hyponatremia due to sepsis. Will continue monitoring CMP 05/13/2025: Tracking LFT and bilirubin level -administrator social welfare and substance navigation were provided -control pain 05/12/25:-CT AP and MRCP ruled out the choledocholithiasis, possibly from EtOH abuse Vs Systemic sclerosis component or other comorbid autoimmune liver disorders eg PSC -AST:ALT 2:1 -Lipase trending down with lesser abd pain -given one time dose of ARCELIA ALbumin 25% for low BP and low serum albumin # Hx of Systemic sclerosis, scleroderma, CREST syndrome # Hx of Raynaud's disease # Hx of Pulmonary HTN from Systemic sclerosis -Renal USG Showed IMPRESSION: 1. Normal size kidneys without evidence of hydronephrosis. 2. Moderate ascites. -Swallow eval done, dysphagia from SS is improved, and continue Full liquid diet and advance as tolerated. -Med rec was done and continued appropriately -suggested for the outpatient follow up CODE STATUS: Full code DVT prophylaxis: Sc heparin Analgesia/sedation: [place] as needed Lines/tubes: Peripheral IV GI prophylaxis: Protonix Nutrition: Regular Prognosis: guarded Disposition: Transferred to PCU. Continue medical management including antibiotics, decompensated liver failure management plan, pain control, PT eval and DC plan. Nicolas Rodrigues MD Internal Medicine Resident PGY-1 Date of Service: May 14, 2025 Billing Provider: LUCA HEIN MD Common Visit Codes: [id number] CARE 30-74 MIN Progress Results/Orders Results/Orders Vital Signs 6/22/25 6/22/25 6/23/25 6/23/25 18:30 23:35 03:09 05:33 Pulse 85 Resp 41 32 FiO2 80 Laboratory Tests Test 05/15/25 05:25 CBC Comment Coagulation Comments Chemistry Comments Microbiology Date/Time Source Procedure Growth Status 05/14/25 12:08 Blood Arm Right Blood Culture - Preliminary NEGATIVE (LESS THAN 24 HOURS) Resulted 05/11/25 15:53 Ascites Fluid Fluid Routine Culture - Final Complete 05/11/25 15:53 Ascites Fluid Fluid Anaerobic Culture - Final NO ANAEROBES ISOLATED. Complete 05/11/25 14:31 Print Internal Inquiry - Final Complete 05/11/25 14:20 Nasal Swab MRSA Screen - Final Staphylococcus Aureus Complete Progress Progress This is Dr. Gates. Called to bedside via [employer]. I arrived to see patient receiving active CPR. Multiple rounds of epinephrine as well as bicarb and calcium administered with return of spontaneous circulation. Patient was successfully intubated by myself using GlideScope and a 7. 0.5 ET tube on 1st attempt. Bougie was utilized to assist intubation. Status post intubation good fogging of tube, good color change and good bilateral breath sounds. Central line: Patient requiring pressors and is critically ill requiring multiple medications therefore central line indicated. Using maximum barrier protection and bedside ultrasound for lumen central line catheter placed in patient's right femoral vein. All four lines flushed. Line secured in place with sutures and Tegaderm. Patient tolerated procedure well without complication. Total time of procedure 15 minute NICOLAS CARSON May 14, 2025 17:12 GREG GATES MD May 15, 2025 05:51 LUCA HEIN MD May 16, 2025 16:30
--- NOTE | 2025-05-14 18:12 | RADIOLOGY REPORT ---
CLINICAL HISTORY: sob TECHNIQUE: CT of the chest was performed without intravenous contrast. This exam was performed accord ing to our departmental dose optimization program. Up-to-date CT equipment and radiation dose reducti on techniques are utilized as appropriate. COMPARISON: CT abdomen and pelvis from 05/11/2025 or FINDINGS: Lower Neck: There is a 7.5 mm hypodense left thyroid nodule on series 2, image 9. Axilla, Mediastinum and Mai: No axillary lymphadenopathy. Limited evaluation of the mai in the abs ence of intravenous contrast. No mediastinal lymphadenopathy. There is fluid distention of the esopha shashank. Heart and Great Vessels: Mild cardiomegaly with trace pericardial fluid. The thoracic aorta is jairo l in caliber with mild calcified atherosclerotic plaque. Central pulmonary arteries are normal calibe r. Minimal coronary artery calcifications. Airway, Lungs and Pleura: Small bilateral pleural effusions. The trachea and central airways are steele nt. There is interlobular septal thickening in the lungs. There is basilar and dependent bilateral larry ng consolidations with some volume loss in the bilateral lower lobes in the right middle lobe. Air br onchograms in the bilateral lower lobe consolidations. Upper Abdomen: See separately dictated recent CT abdomen and pelvis from 05/11/2025 for discussion. T here is mild upper abdominal ascites. There is moderate hepatic steatosis. Chest Wall and Osseous Structures: No destructive osseous lesion. Mild chest wall edema. IMPRESSION: 1. Mild cardiomegaly, small bilateral pleural effusions, mild upper abdominal ascites, chest wall fern ma, and mild interstitial pulmonary edema. 2. Bibasilar and dependent lung consolidations greatest in the lower lobes which contain air bronchog kyung, likely atelectasis, though a component of pneumonia (which can be on the basis of aspiration), could contribute to this appearance. 3. Fluid distention of the esophagus which could be due to gastroesophageal reflux or esophageal dysm otility. 4. Minimal coronary artery calcifications. Radiation optimization: All CT scans at this facility use at least one of these dose optimization pallavi hniques: automated exposure control mA and/or kV adjustment per patient size (includes targeted exam s where dose is matched to clinical indication) or iterative reconstruction.
[2025-05-14 20:00] VITALS: RESP 35; O2SAT 78
[2025-05-14 22:00] VITALS: BP 92/54; PULSE 91; RESP 36; TEMP 97.8; O2SAT 96
[2025-05-15] VITALS (16 sets, daily range): BP systolic 104–137; BP diastolic 39–53; PULSE 61–78; RESP 20–31; TEMP 97.3; O2SAT 22–96
[2025-05-15] MEDS: sodium bicarbonate (8.4%) 1 mEq/ml syringe ONE ×5 (05:11→06:00)
[2025-05-15] MEDS: NORepinephrine 8mg/ 250ml NS 250 ML IV ONE (05:42)
[2025-05-15] MEDS ORDERED: NORepinephrine 8mg/ 250ml NS 250 ML IV SCH ×2 (05:45→07:55)
[2025-05-15] MEDS ORDERED: FENTANYL-0.9 % NACL/PF 100 ML IV SCH (05:45)
[2025-05-15 05:49] LABS: BASOPHILS % (AUTO) 0.2 % (0-1); EOSINOPHILS % (AUTO) 0.1 % (0-6); HEMATOCRIT 25.2 % (35.0-45.0); HEMOGLOBIN 7.9 g/dl (12.0-16.0); LYMPHOCYTES # (AUTO) 1.8 X10'3 (1.1-4.8); LYMPHOCYTES % (AUTO) 24.8 % (21-51); MEAN CORPUSCULAR HEMOGLOBIN 36.8 PG (27.0-31.0); MEAN CORPUSCULAR HGB CONC 31.5 g/dL (33.0-36.5); MEAN CORPUSCULAR VOLUME 116.8 FL (78-98); MEAN PLATELET VOLUME 8.7 FL (7.4-10.4); MONOCYTES # (AUTO) 0.5 X10'3 (0-0.9); MONOCYTES % (AUTO) 6.3 % (2-12); NEUTROPHILS # (AUTO) 5.1 X10'3 (1.8-7.7); NEUTROPHILS % (AUTO) 68.6 % (42-75); PLATELET COUNT 75 X10'3 (140-440); RED BLOOD COUNT 2.16 X10'6 (4.20-5.60); WHITE BLOOD COUNT 7.4 X10'3 (4.5-11.0)
[2025-05-15 05:52] LABS: ABG HCO3 8.5 mmol/L (21.0-28.0); ABG OXYGEN SATURATION 88.4 % (94.0-98.0); ABG PCO2 (T) 34.3 mmHg (32.0-45.0); ABG PH (T) 6.997 (7.350-7.450); ABG PO2 (T) 72.6 mmHg (83.0-108.0); FCOHb 0.5 % (0.5-1.5); FHHb 11.5 % (0.0-5.0); FMetHb 0.2 % (0.0-1.5); FO2Hb 87.8 % (94.0-98.0); MODE ac/prvc; PATIENT TEMPERATURE 35.3; PEEP 8 cm H2O; RESPIRATORY RATE 24 b/min; TIDAL VOLUME 475 mL; TOTAL HEMOGLOBIN 9.6 G/dl (12.0-16.0)
[2025-05-15] MEDS: dextrose 50%-water 50ml dispensing syringe IV ONE ×4 (05:59→11:32)
[2025-05-15] MEDS: sodium bicarbonate (8.4%) 1 mEq/ml syringe IV ONE (05:59)
[2025-05-15] MEDS: fentaNYL/PF 50MCG/1 ML 2ML syringe IV ONE (06:02)
[2025-05-15] MEDS: fentaNYL/PF 50MCG/1 ML 2ML syringe ONE (06:02)
[2025-05-15] MEDS: NORepinephrine 8mg/ 250ml NS 250 ML IV PRN (06:02)
[2025-05-15 06:17] LABS: ALANINE AMINOTRANSFERASE 42 U/L (12-78); ALBUMIN 1.3 G/DL (3.4-5.0); ALBUMIN/GLOBULIN RATIO 0.6 (1.1-1.5); ALKALINE PHOSPHATASE 78 IU/L (46-116); ANION GAP 15 (8-16); ASPARTATE AMINO TRANSFERASE 119 U/L (10-37); BILIRUBIN,TOTAL 2.8 MG/DL (0.1-1.0); BLOOD UREA NITROGEN 11 MG/DL (7-18); CALCIUM 8.9 MG/DL (8.5-10.1); CHLORIDE 104 MMOL/L (99-107); CREATININE 1.22 MG/DL (0.40-0.90); MAGNESIUM 2.1 MG/DL (1.5-2.4); PHOSPHORUS 6.5 MG/DL (2.3-4.5); POTASSIUM 5.4 MMOL/L (3.5-5.1); SODIUM 137 MMOL/L (135-145); TOTAL CARBON DIOXIDE 18.5 MMOL/L (24-32); TOTAL PROTEIN 3.5 G/DL (6.4-8.2); eCRCL 54 ML/MIN; eGFR 46 ML/MIN
[2025-05-15 06:18] LABS: INR 3.3 INR; PROTHROMBIN TIME 29.9 SECONDS (9.0-12.0)
--- NOTE | 2025-05-15 06:29 | RADIOLOGY REPORT ---
EXAM: XR Chest, 1 View CLINICAL INDICATION: Pain TECHNIQUE: Frontal view of the chest. COMPARISON: No relevant prior studies available. FINDINGS: LUNGS AND PLEURAL SPACES: Pulmonary venous congestion. No consolidation. No pneumothorax. HEART: Unremarkable. No cardiomegaly. MEDIASTINUM: Unremarkable. Normal mediastinal contour. BONES/JOINTS: Unremarkable. No acute fracture. TUBES, LINES AND DEVICES: The endotracheal tube (ETT) is in satisfactory position. IMPRESSION: Pulmonary venous congestion.
[2025-05-15] MEDS: dextrose 50%-water 50ml dispensing syringe IV PRN (06:30)
[2025-05-15 06:31] LABS: TOTAL CELLS COUNTED 100
[2025-05-15 06:32] LABS: ANISOCYTOSIS 1+; PLATELET ESTIMATE DECREASED
[2025-05-15 06:33] LABS: BURR CELLS 1+; LARGE PLATELETS FEW
[2025-05-15 06:38] LABS: APTT > 139 SECONDS (22-32)
[2025-05-15 06:39] LABS: GLUCOSE 9 MG/DL (70-104)
[2025-05-15] MEDS: FENTANYL-0.9 % NACL/PF 100 ML IV SCH (07:06)
[2025-05-15 07:18] LABS: ABG OXYGEN SATURATION 80.8 % (94.0-98.0); ABG PCO2 (T) 40.3 mmHg (32.0-45.0); ABG PH (T) 6.986 (7.350-7.450); ABG PO2 (T) 52.4 mmHg (83.0-108.0); ALLEN'S TEST POSITIVE; FCOHb 0.8 % (0.5-1.5); FMetHb 0.3 % (0.0-1.5); FO2Hb 79.9 % (94.0-98.0); PATIENT TEMPERATURE 33.1; PEEP 8 cm H2O; RESPIRATORY RATE 24 b/min; TIDAL VOLUME 475 mL; TOTAL HEMOGLOBIN 8.1 G/dl (12.0-16.0)
[2025-05-15 07:19] LABS: AMYLASE 50 U/L (25-115); LIPASE 47 U/L (16-77)
--- NOTE | 2025-05-15 07:34 | ELECTROCARDIOGRAPH REPORT ---
[facility] Test Date: 2025-05-15 Test Time: 07:32:44 Pat Name: NERIS MAYER Department: [facility] 2S Patient ID: [facility]-[id number] Room: [facility] 2006 A Gender: F Analysis Consultant: MOY : 1970 Requested By: MARVEL WILLETT Order Number: [id number] Reading MD: Dr. CHRIS Hare Measurements Intervals [place] Rate: 70 P: 63 MI: 183 QRS: 29 QRSD: 123 T: 33 QT: 492 QTc: 531 Interpretive Statements Sinus rhythm Left bundle branch block Electronically Signed On 05-15-2025 9:13:[address] CHRIS Hare Please click the below link to view image of tracing.
[2025-05-15] MEDS: sodium bicarbonate 1meq/ml inj 150 ML in dextrose 5%-water 1,000 ML IV SCH (07:36)
[2025-05-15] MEDS: pantoprazole 40 MG vial IV SCH (08:43)
[2025-05-15] MEDS: VASOPRESSIN 20 UNITS/NS 100mL 100 ML IV SCH (08:48)
[2025-05-15] MEDS ORDERED: hydroxychloroquine 200mg tablet OGT SCH (09:16)
[2025-05-15] MEDS: docusate sodium 100mg/10ml UD cup PO SCH (09:18)
[2025-05-15 09:58] LABS: ABG BASE EXCESS -23.9 mmol/L (-2.0-3.0); ABG HCO3 7.3 mmol/L (21.0-28.0); ABG OXYGEN SATURATION 87.1 % (94.0-98.0); ABG PCO2 (T) 30.8 mmHg (32.0-45.0); ABG PH (T) 6.963 (7.350-7.450); ABG PO2 (T) 62.8 mmHg (83.0-108.0); FCOHb 0.6 % (0.5-1.5); FHHb 12.8 % (0.0-5.0); FMetHb 0.3 % (0.0-1.5); FO2Hb 86.3 % (94.0-98.0); MODE VENT - PRVC; PATIENT TEMPERATURE 33.1; PEEP 10 cm H2O; RESPIRATORY RATE 28 b/min; TIDAL VOLUME 475 mL; TOTAL HEMOGLOBIN 8.8 G/dl (12.0-16.0)
[2025-05-15] MEDS ORDERED: mineral oil/petrolatum ophthal oint EACHEYE PRN (10:00)
[2025-05-15 10:05] LABS: HEMOGLOBIN 7.9 g/dl (12.0-16.0); LYMPHOCYTES # (AUTO) 0.9 X10'3 (1.1-4.8); MEAN CORPUSCULAR HEMOGLOBIN 36.2 PG (27.0-31.0); MONOCYTES # (AUTO) 0.1 X10'3 (0-0.9); NEUTROPHILS # (AUTO) 3.5 X10'3 (1.8-7.7); RED BLOOD COUNT 2.19 X10'6 (4.20-5.60); WHITE BLOOD COUNT 4.5 X10'3 (4.5-11.0)
[2025-05-15 10:07] LABS: BASOPHILS % (AUTO) 0.3 % (0-1); EOSINOPHILS % (AUTO) 0.1 % (0-6); LYMPHOCYTES % (AUTO) 19.7 % (21-51); MEAN CORPUSCULAR HGB CONC 30.5 g/dL (33.0-36.5); MEAN CORPUSCULAR VOLUME 118.9 FL (78-98); MEAN PLATELET VOLUME 8.1 FL (7.4-10.4); MONOCYTES % (AUTO) 2.7 % (2-12); NEUTROPHILS % (AUTO) 77.2 % (42-75); PLATELET COUNT 100 X10'3 (140-440); RED CELL DISTRIBUTION WIDTH 17.5 % (11.5-14.5)
[2025-05-15 10:26] LABS: ALANINE AMINOTRANSFERASE 69 U/L (12-78); ALBUMIN 1.2 G/DL (3.4-5.0); ALBUMIN/GLOBULIN RATIO 0.5 (1.1-1.5); ALKALINE PHOSPHATASE 88 IU/L (46-116); ASPARTATE AMINO TRANSFERASE 287 U/L (10-37); BILIRUBIN,TOTAL 2.9 MG/DL (0.1-1.0); BLOOD UREA NITROGEN 12 MG/DL (7-18); BUN/CREATININE RATIO 9.8 (10.0-20.0); CALCIUM 7.3 MG/DL (8.5-10.1); CHLORIDE 103 MMOL/L (99-107); CREATININE 1.22 MG/DL (0.40-0.90); GLUCOSE 67 MG/DL (70-104); MAGNESIUM 2.1 MG/DL (1.5-2.4); PHOSPHORUS 6.6 MG/DL (2.3-4.5); TOTAL PROTEIN 3.5 G/DL (6.4-8.2); eCRCL 54 ML/MIN; eGFR 46 ML/MIN
[2025-05-15 10:35] LABS: ANISOCYTOSIS 1+; PLATELET ESTIMATE DECREASED; TOTAL CELLS COUNTED 100
[2025-05-15 10:36] LABS: BURR CELLS 1+; TOXIC GRANULATION 1+; TOXIC VACUOLATION FEW
[2025-05-15 10:39] LABS: INR 3.1 INR; PROTHROMBIN TIME 28.7 SECONDS (9.0-12.0)
[2025-05-15 10:47] LABS: APTT 120 SECONDS (22-32)
[2025-05-15 10:48] LABS: LACTIC SEPSIS 20.7 MMOL/L (0.4-2.0); TOTAL CARBON DIOXIDE 11.6 MMOL/L (24-32)
[2025-05-15] MEDS ORDERED: calcium chloride 100 MG/1 ML inj IV ONE (11:00)
[2025-05-15 11:06] LABS: POTASSIUM 4.7 MMOL/L (3.5-5.1)
[2025-05-15 11:11] LABS: ANION GAP 25 (8-16); SODIUM 140 MMOL/L (135-145)
[2025-05-15] MEDS ORDERED: dextrose 50%-water 50ml dispensing syringe IV PRN (11:30)
[2025-05-15] MEDS: STERILE IV SCH (11:58)
[2025-05-15] MEDS: WATER FOR INJECTION IV SCH (11:58)
[2025-05-15] MEDS: DEXTROSE IV SCH (11:58)
[2025-05-15] MEDS: WATER IV SCH (11:58)
[2025-05-15] MEDS: mineral oil/petrolatum ophthal oint EACHEYE SCH (12:24)
--- NOTE | 2025-05-15 12:58 | PROGRESS NOTE ---
Subjective Subjective Patient was seen at bedside after coding in the early hours of today with CPR required for 9 minutes. She is now intubated on mechanical ventilation and remains unresponsive. Reason for visit: Pulmonary critical care follow-up Reviewed: Care Plan, H&P, Labs, Radiology Daily Progress Note Exam Vitals Vital Signs Date Time Temp Pulse Resp B/P (MAP) Pulse Ox O2 Delivery O2 Flow Rate FiO2 05/15/25 12:00 90.5 05/15/25 12:00 69 28 121/44 (69) Mechanical Ventilator 05/15/25 11:00 82 05/15/25 08:00 87 05/13/25 10:00 1.0 Result Diagram: 05/15/25 0951 05/15/25 0951 Exam General: Comatose after code HEENT: Pupils with poor reaction to light, no gag, no corneal. S Neck: No masses and tenderness Resp: Unlabored. Lungs clear to auscultation bilaterally. Chest: Normal expansion Cardiovascular: Regular Rate and rhythm, normal S1 and S2 without murmur, rub or gallop Abdomen: Distended and significantly tender to palpation. bowel sounds diminished. Neuro: Unresponsive to noxious stimulus after cardiac arrest. Extremities: No cyanosis,clubbing or edema Skin: Warm and Dry. No lesions Psych: Normal affect Results Coagulation Studies Laboratory Tests Test 05/15/25 09:51 Prothrombin Time 28.7 SECONDS (9.0-12.0) H INR International Normalized Ratio 3.1 INR Activated Partial Thromboplast Time 120 SECONDS (22-32) *H Coagulation Comments VTE VTE Risk Score VTE Risk Score Reference Ranges: Score 0-1 = Low Risk (Aggressive mobilization; early ambulation; no VTE prophylaxis required) Score 2: Moderate Risk (Intermittent/Pneumatic Compression Device OR Lovenox/Heparin/Coumadin) Score 3-4: High Risk (Intermittent/Pneumatic Compression Device AND Lovenox/Heparin/Coumadin) Score > or = 5: Highest Risk (Intermittent/Pneumatic Compression Device AND Lovenox/Heparin/Coumadin) Assessment/Plan Assessment A 55 years old female with PMH of systemic sclerosis with scleroderma, Raynaud's disease with the Raynaud's phenomenon, gastroparesis, hx of diverticulitis, s/p hysterectomy, cholecystectomy, s/p hernia repair surgery presented with acute on chronic severe upper abdominal pain woke her up in the middle of 2 midnight ago who is found to have mildly elevated Lipase and LFTs with hyperbilirubinaemia, and electrolytes imbalance- hypokalemia. Plan #Status post cardiac arrest # Acute pancreatitis # Abdominal pain secondary to acute pancreatitis # Possible SBP # Septic shock: Hypothermia with a temperature of 33.3 C, leukocytosis with a left shift. Now on norepinephrine and vasopressin drips. # Worsening lactic acidosis # Persistent PH of 6.9 despite bicarbonate drip. # Decompensated alcoholic liver cirrhosis, meld score 17, child Almanza class B # Portal Hypertension # fatty liver infiltration # Hx of Constipation # s/p cholecystectomy, CBD dilation with 7mm # Hx of Systemic sclerosis, scleroderma, CREST syndrome # Hx of Raynaud's disease # Hx of Pulmonary hypotension secondary to systemic sclerosis # Hypoalbuminemia # Hypoglycemia # Hyperammonia # TATE Plan: Continue mechanical ventilation Continue bicarbonate drip May need CRRT for pH correction Continue antibiotic therapy with ciprofloxacin and metronidazole Initiate 50% dextrose solution at 20 mL/hour to maintain serum glucose levels of 70 or above. Check serum glucose levels every 1 hour Maintain patient's temperature at 33 C after cardiac arrest with the [facility] CODE STATUS: Full code DVT prophylaxis: Sc heparin Analgesia/sedation: Off sedation Lines/tubes: Peripheral IV GI prophylaxis: Protonix Nutrition: Regular Prognosis: guarded Social: I had a discussion with the patient's long-time boyfriend Mr. Hill and her best friend Raquel about her health leading up to this admission. Boyfriend reports decline of health especially in the past eight months. Girlfriend reports that patient had voiced that she would not want to be on life support. Given these revelations and the fact that patient he has the comorbid condition of systemic sclerosis complicated by Raynaud's disease and today's cardiac arrest with absent brainstem reflexes, we have come to the conclusion that it would be in the patient's best interest to transition to a no code status as well as transition to comfort measures once some of her adopted family members arrived from [facility] this afternoon. MARVEL WILLETT MD May 15, 2025 12:58
[2025-05-15] MEDS ORDERED: acetaminophen 325mg/10.15ml oral unit dose solution OGT PRN (13:35)
[2025-05-15] MEDS ORDERED: atorvastatin 20mg tablet OGT SCH (13:35)
[2025-05-15] MEDS ORDERED: busPIRone 5mg tablet OGT SCH (13:36)
[2025-05-15] MEDS ORDERED: lactulose 20gm/30ml cup OGT SCH (13:36)
[2025-05-15] MEDS ORDERED: docusate sodium 100mg/10ml UD cup OGT SCH (13:36)
[2025-05-15] MEDS ORDERED: PARoxetine 20mg tablet OGT SCH (13:37)
[2025-05-15] MEDS ORDERED: magnesium hydroxide 30ml (MOM) UD suspension OGT PRN (13:37)
[2025-05-15] MEDS ORDERED: mag hydrox/Alum hydrox/simeth 30ml oral suspension OGT PRN (13:37)
[2025-05-15] MEDS ORDERED: rifaximin 550mg tablet OGT SCH (13:38)
[2025-05-15] MEDS ORDERED: POTASSIUM CHLORIDE 20 MEQ/15 ML oral solution OGT PRN ×2 (13:38→13:39)
[2025-05-15] MEDS ORDERED: sildenafil citrate 20mg tablet OGT SCH (13:38)
[2025-05-15] MEDS: COMMUNICATION ORDER 1 EA MISC MC ONE (13:48)
[2025-05-15] MEDS: LORazepam 2 mg/ml vial IV PRN (16:15)
[2025-05-15] MEDS: morphine 10mg/ml inj. IV PRN (16:16)
--- NOTE | 2025-05-15 17:53 | PATHOLOGY REPORT ---
[facility] [address] [place] [address] NON-MARINE FIRER CYTOLOGY REPORT CaseNumber: [id number] Surgeon:Austin Rice M.D. CLINICAL INFORMATION CLINICAL INFORMATION: Not provided. DIAGNOSIS DIAGNOSIS: ASCITES; PARACENTESIS - NEGATIVE FOR MALIGNANCY. MICROSCOPIC DESCRIPTION MICROSCOPIC DESCRIPTION: Prepared from the ascites fluid (SG 1.011) were one Pap stained double cyto spin slide, one air-dried Diff-Quik stained slide, and one cell block which on review were found to b e negative for malignancy. Present is a mesh network of fibrin, red blood cells, and lysed red blood cells within which are sca ttered lymphocytes, neutrophils, and scattered reactive/atypical mesothelial cells. The mesothelial c ells are medium to large in size. They have a moderate amount of cytoplasm. The nuclei are oval to sl ightly irregular. The chromatin is slightly coarse. Small nucleoli are present. The appearance of the mesothelial cells lie along a continuous spectrum. There is no second population to suggest a malign ant diagnosis. The mesothelial cell atypia is likely inflammatory in nature, as there are neutrophils surrounding the majority of the mesothelial cells surround and intermix with the mesothelial cell cl usters. There is no malignancy. (st) GROSS DESCRIPTION GROSS DESCRIPTION: Received labeled with the patient's name, number, and "ascites fluid" is 42.5 mL o f unfixed clear, yellow, watery fluid. Specific gravity is 1.011. One smear for Diff-Quik, one doubl e cytospin slide, and one cell block are prepared. The cell block is submitted as A1. The time at [facility] the specimen was removed was 1553. The time at which the specimen was placed in formalin was 1730. (cs) Electronically signed by: Erica Vizcarra M.D. 05/15/2025 5:18:00 PM
--- NOTE | 2025-05-15 18:25 | PROGRESS NOTE- Residence ---
Progress Note - Resident Providers to CC Resident Creating Document: GEGE BARORN RES ~ Antibiotic Timeout Antibiotic Ordered?: Yes Subjective Patient was seen at the bedside and CICU under mechanical ventilation. Objective Vital Signs Date Time Temp Pulse Resp B/P (MAP) Pulse Ox O2 Delivery O2 Flow Rate FiO2 05/15/25 16:00 92.5 05/15/25 16:00 61 28 105/40 (61) Mechanical Ventilator 100 05/15/25 15:00 28 05/13/25 10:00 1.0 Result Diagram: 05/15/25 0951 05/15/25 0951 Vitals were stable at the moment. On exam, General:under [facility] ventilation, not in acute distress, well cooperated during the physical. HEENT: facial telangiectasia, Conjunctive are pink, sclerae clear, no icterus, pupil is equal in both sides, poor reaction to light, no ear discharge, no pharyngeal erythema or an edema, mouth and lips are dry. Neck and chest: Widespread spider nevi on the upper chest, Supple, no JVD, no lymphadenopathy and thyromegaly. Lungs:Equal air entry on both lungs, no additional sounds Heart: S1-S2 regular sinus rhythm and, regular rate, no gallops, no rubs, no murmurs Abdomen: No visible peristalsis, Bowel sounds present on auscultation, globally diffusely distended, soft, nontender, no guarding, no rigidity Extremities: No obvious deformities, no pitting edema bilaterally, capillary refill intact, able to wiggle toes both sides, peripheral pulsations are intact on both sides [employer]: Unconscious after cardiac arrest, could not assess the [employer] and PNS at the moment Musculoskeletal: No joint swelling, deformities, inflammations, and no scoliosis and back tenderness Skin: No active skin lesions and rashes Coagulation Studies Laboratory Tests Test 05/15/25 09:51 Prothrombin Time 28.7 SECONDS (9.0-12.0) H INR International Normalized Ratio 3.1 INR Activated Partial Thromboplast Time 120 SECONDS (22-32) *H Coagulation Comments Assessment Assessment A 55 years old female with PMH of systemic sclerosis with scleroderma, Raynaud's disease with the Raynaud's phenomenon, gastroparesis, hx of diverticulitis, s/p hysterectomy, cholecystectomy, s/p hernia repair surgery presented with acute on chronic severe upper abdominal pain woke her up in the middle of 2 midnight ago who is found to have mildly elevated Lipase and LFTs with hyperbilirubinaemia, and electrolytes imbalance- hypokalemia. Plan Plan # S/P cardiac arrest #Acute abdomen from decompensated liver disease and SBP, MELD 17, Child B # Septic shock from the above with metabolic acidosis # Portal Hypertension # fatty liver infiltration # Hx of Constipation # s/p cholecystectomy, CBD dilation with 7mm # Ruled out Gallstone pancreatitis # acute pancreatitis 05/15/2025: Continue IV ciprofloxacin and metronidazole -continue vasopressors and mechanical ventilation support in CICU under pipe line maintenance supervisor management -Continue bicarb drip and fluids -ICU team is going to discuss with family for the possible Comfort care once her adopted family arrive in the setting of worsening systemic sclerosis with Reynauld disease. -continue blood glucose monitoring for decompensated liver failure with high risk of hypoglycemia -supportive measures for hypothermia -AFP normal 05/13/2025: pain control with IV hydromorphone 0.5 mg q.6 hours p.r.n., p.o. Stewart 5 q.4 hours as needed -hyperbilirubinemia, trach ammonia to adjust lactulose frequency -continue p.o. lactulose 30 mL TID -stopped IV fluids, monitor I's and O's -protein diet was encouraged -pending AFP 05/12/25:-her acute upper abd pain from possible SBP (ruled out with ascitic WBC <250) Vs Systemic sclerosis Vs acute pancreatitis Vs Chronic Constipation -CT abdomen: Apparent wall thickening of the gastric wall concerning for gastritis. Clinical correlation is recommended. Ascites. Small esophageal hiatal hernia. Hepatomegaly with fatty infiltration. Fecal retention in the colon consistent with constipation. Punctate right nephrolithiasis without hydronephrosis. -MRCP showed Cholecystectomy. Common bile duct diameter measuring 7 mm, likely reflective of underlying cholecystectomy. No evidence of choledocholithiasis. Pancreatic duct not well characterized. Moderate volume of ascites fluid. Extensive bowel wall edema and thickening of the stomach, small and large bowel with differential considerations including gastritis, enteritis/colitis, inflammatory bowel disease. Mesenteric edema, peripancreatic edema. Correlate with appropriate lab values to exclude pancreatitis. Tiny bilateral pleural effusions. Left renal midpole exophytic lesion measuring 11 mm, likely hemorrhagic/proteinaceous cysts. Recommend renal ultrasound to characterize and exclude solid mass. -she was given IV LR -pain control -paracentesis was done, 3.7 L thing clear yuli colored yellow ascites fluid was sent out for analysis indicating that SAAG showed >1.1 (Asct fluid Albu <0.6 and serum Albu 2) from possible Portal Hypertension source, C&S, cytology was pending. -Started PO rifampin 550 mgBID and lactulose 30 ml TID for at least 2-3 times of BM per day, continue with Laxatives -BLd C&S showed no growth after 1 day -prolonged PT but normal Plt count -f/up w/ AFP -full liquid diet and advance as tolerated with Nausea -ruled out Bowel obstruction with CT abd and having BM with lactulose # Transaminitis # Hx of Substance abuse (EtoH, cannabinoid, and opiate) # Downtrending direct hyperbilirubinamia # selective hypoalbuminemia # Electrolyte imbalance - hypokalemia # Mildly elevated lipase with possible pancreatitis # hyperchromic macrocytic anemia 05/15/2025: Trending up LFTs from septic shock and decompensated liver failure -malignant bili elevated ammonia level with 255, acute hepatic metabolic encephalopathy 05/13/2025: Tracking LFT and bilirubin level -psychiatric social worker supervisor and substance navigation were provided -control pain 05/12/25:-CT AP and MRCP ruled out the choledocholithiasis, possibly from EtOH abuse Vs Systemic sclerosis component or other comorbid autoimmune liver disorders eg PSC -AST:ALT 2:1 -Lipase trending down with lesser abd pain -given one time dose of ARCELIA ALbumin 25% for low BP and low serum albumin # TATE # Persistent metabolic acidosis on HCO3 drip 05/15/2025: Creatinine 1.22, gradually trending up, nephrology consultation was requested, appreciate it -might need CRRT if patient would not be on comfort care after family discussion -strict I's and O's monitoring # Hx of Systemic sclerosis, scleroderma, CREST syndrome # Hx of Raynaud's disease # Hx of Pulmonary HTN from Systemic sclerosis -Renal USG Showed IMPRESSION: 1. Normal size kidneys without evidence of hydronephrosis. 2. Moderate ascites. -Swallow eval done, dysphagia from SS is improved, and continue Full liquid diet and advance as tolerated. -Med rec was done and continued appropriately -suggested for the outpatient follow up CODE STATUS: DNR with comfort care DVT prophylaxis: Sc heparin Analgesia/sedation: Stewart as needed Lines/tubes: Peripheral IV GI prophylaxis: Protonix Nutrition: Regular Prognosis: guarded Disposition: Continue medical management in CICU. Resident MD attestation: Patient was seen, examined and discussed with attending MD, Dr. Hein Critical care time 35 minutes. GEGE BARRON MD Internal Medicine Resident, PGY2 [facility] Date of Service: May 15, 2025 Billing Provider: LUCA HEIN MD Common Visit Codes: [id number] CARE 30-74 MIN GEGE BARRON, RES May 15, 2025 18:25 LUCA HEIN MD May 16, 2025 16:30
[2025-05-16] MEDS ORDERED: mineral oil/petrolatum ophthal oint EACHEYE SCH (08:00)
== END 2025-05-15 21:57 | DRG 720 ==
LOC: ER 03:07 → ED HOLD 05:47 → SUR 3N 11:55 → PCU 3S 05-14 16:32 → CICU 2S 05-15 05:40
PROVIDERS: ADMIT Internal Medicine Critical Care Medicine; ATTEND Internal Medicine Critical Care Medicine
PROC: 0W9G3ZX Drainage of Peritoneal Cavity, Percutaneous Approach, Diagnostic (ICD-10-PCS; principal; 2025-05-11)
PROC: 5A1935Z Respiratory Ventilation, Less than 24 Consecutive Hours (ICD-10-PCS; 2025-05-11)
PROC: 0BH17EZ Insertion of Endotracheal Airway into Trachea, Via Natural or Artificial Opening (ICD-10-PCS; 2025-05-11)
PROC: 5A12012 Performance of Cardiac Output, Single, Manual (ICD-10-PCS; 2025-05-14)
DX: A41.9 Sepsis, unspecified organism (principal); I46.9 Cardiac arrest, cause unspecified; R65.21 Severe sepsis with septic shock; K85.90 Acute pancreatitis without necrosis or infection, unspecified; E87.20 Acidosis, unspecified; E88.09 Other disorders of plasma-protein metabolism, not elsewhere classified; E87.1 Hypo-osmolality and hyponatremia; K76.6 Portal hypertension; N17.9 Acute kidney failure, unspecified; K70.31 Alcoholic cirrhosis of liver with ascites; E87.6 Hypokalemia; M34.9 Systemic sclerosis, unspecified; K59.00 Constipation, unspecified; G89.29 Other chronic pain; K21.9 Gastro-esophageal reflux disease without esophagitis; I73.00 Raynaud's syndrome without gangrene; K31.84 Gastroparesis; M06.9 Rheumatoid arthritis, unspecified; E80.6 Other disorders of bilirubin metabolism; K29.70 Gastritis, unspecified, without bleeding; R74.01 Elevation of levels of liver transaminase levels; D53.9 Nutritional anemia, unspecified; E16.2 Hypoglycemia, unspecified; Z90.710 Acquired absence of both cervix and uterus; Z88.0 Allergy status to penicillin; Z88.8 Allergy status to other drugs, medicaments and biological substances; Z90.49 Acquired absence of other specified parts of digestive tract
CPT/HCPCS: 36415; 36600; 49083; 71045; 71250; 74176; 74181; 76770; 80053; 80061; 80305; 81001; 81025; 82042; 82103; 82140; 82150; 82248; 82803; 82945; 82948; 83036; 83605; 83615; 83690; 83735; 84100; 84132; 84145; 84157; 84443; 84484; 85007; 85018; 85025; 85610; 85730; 86704; 86705; 86803; 87040; 87070; 87075; 87081; 87340; 87522; 89051; 92508; 92616; 93005; 94002; 94003; 94760; 96361; 96365; 96372; 96375; 97116; 97162; A4615; A6258; A6449; C1758; G0378; J0171; J0696; J0744; J1171; J1644; J2060; J2270; J2274; J2405; J2470; J3010; J3475; J3490; J7030; J7040; J7070; J7120; P9047